=== PATIENT | female | born 1940 | race Caucasian/White ===

== ENCOUNTER 2018-10-29 09:07 | Outpatient (REF) | payer OTHER, SELFPAY ==
[2018-10-29 21:25] LABS: ALT 25 U/L (12-78); AST 19 U/L (15-37); Albumin 3.7 g/dL (3.4-5.0); Alkaline Phosphatase 91 U/L (46-116); Anion Gap 9.4 mmol/L (3-11); BUN 20 mg/dL (7-18); Bilirubin, Total 1.4 mg/dL (0.2-1.0); CO2 26.6 mmol/L (21.0-32.0); CREATININE 0.78 mg/dL (0.55-1.02); Calcium 9.4 mg/dL (8.5-10.1); Calculated LDL 207 mg/dL; Chloride 107 mmol/L (98-107); Cholesterol 287 mg/dL (50-200); Glucose 87 mg/dL (70-100); HDL Cholesterol 63 mg/dL (40-60); Potassium 4.5 mmol/L (3.5-5.1); Sodium 143 mmol/L (136-145); Total Protein 6.6 g/dL (6.4-8.2); Triglyceride 88 mg/dL (30-150)
== END 2018-10-29 09:27 ==
LOC: NCHCN 09:07
PROVIDERS: PCP Family Medicine; Visit Provider Family Medicine
DX: E78.5 Hyperlipidemia, unspecified (principal); R73.01 Impaired fasting glucose; I10 Essential (primary) hypertension
CPT/HCPCS: 80053; 80061; 83721

== ENCOUNTER 2019-11-02 11:51 | Outpatient (REF) | payer OTHER, SELFPAY ==
[2019-11-02 20:08] LABS: Anion Gap 10.4 mmol/L (3-11); BUN 26 mg/dL (7-18); CO2 26.6 mmol/L (21.0-32.0); CREATININE 1.02 mg/dL (0.55-1.02); Calcium 9.4 mg/dL (8.5-10.1); Chloride 106 mmol/L (98-107); Estimated GFR 52.14 (mL/min/1.73m2); Glucose 95 mg/dL (74-106); Potassium 4.7 mmol/L (3.5-5.1); Sodium 143 mmol/L (136-145); TSH (W/Ref FT4) 0.57 uIU/mL (0.36-3.74)
[2019-11-02 20:10] LABS: Hemoglobin A1C 5.6 % (3.8-5.6)
== END 2019-11-02 12:11 ==
LOC: NCHCN 11:51
PROVIDERS: PCP Family Medicine
DX: I10 Essential (primary) hypertension (principal); K59.00 Constipation, unspecified; R73.01 Impaired fasting glucose
CPT/HCPCS: 80048; 83036; 84443

== ENCOUNTER 2020-03-05 01:48 | Outpatient (CLI) | payer OTHER, SELFPAY ==
--- NOTE | 2020-03-05 | DI.US_ITS ---
EXAM: US PELVIS CLINICAL HISTORY: ABNL UTERINE BLEEDING,N93.9 TECHNIQUE: Transabdominal imaging was performed using standard protocol. Transvaginal portion of t he exam could not be performed due to patient discomfort. COMPARISON: No exams were available for comparison FINDINGS: KIDNEYS: Kidneys are symmetric in size. No evidence of renal calculi. No evidence of hydronephrosis. No renal mass or cyst identified. UTERUS: The exam is limited due to lack of urinary bladder distension and lack of transvaginal images . Anteverted. 6.2 x 2.6 x 4.3 cm. Endometrium: 15 millimeters in thickness. Not well visualized. Myometrium: Unremarkable. Cervix: Unremarkable. OVARIES: Not visualized, obscured by bowel gas. CUL-DE-SAC: Free fluid: None. IMPRESSION: 1. Limited exam. Abnormally thickened endometrium.. 2. Nonvisualization of the ovaries. DATA REPOSITORY:
== END 2020-03-05 02:08 ==
PROVIDERS: PCP Family Medicine; Visit Provider Family Medicine
DX: N93.9 Abnormal uterine and vaginal bleeding, unspecified (principal)
CPT/HCPCS: 76856

== ENCOUNTER 2020-03-05 17:51 | Outpatient (REF) | payer OTHER, SELFPAY ==
--- NOTE | 2020-03-05 16:00 | ENDOMET_PTH ---
PATIENT: Richa Bradford LOC: [facility] U#:[id number] AGE/SX: 79/F ROOM: RE03/05/[address]: Crystal Wilson DO : 1940 BED: DIS: 03/05/2020 SPEC #: [id number] RECD: 03/05/20 18:05 STATUS: BOBBI REQ #: [id number] JOSE: 03/05/20 16:[address]: Crystal Wilson DEPT: Surgical Specimen RECD BY: Kathleen Lopez ENTERED: 03/05/20 18:07 SP TYPE: Endomet OTHR DR: Mariya Dumont Tissues: 1 - ENDOMETRIUM BX/ONEAL Procedures: GROSS AND MICRO LEVEL 4 Comments: [id number]
== END 2020-03-05 18:11 ==
LOC: LBN 17:51
PROVIDERS: PCP Family Medicine; Visit Provider Obstetrics & Gynecology
DX: N85.02 Endometrial intraepithelial neoplasia [EIN]; N95.0 Postmenopausal bleeding
CPT/HCPCS: 88305

== ENCOUNTER 2020-04-30 18:14 | Outpatient (REF) | payer OTHER, SELFPAY ==
[2020-04-30 13:45] LABS: Abs Immature Grans 0.01 10^3/uL (0.0-0.06); Absolute Basophil Count 0.02 10^3/uL (0.0-0.2); Absolute Eosinophil Count 0.19 10^3/uL (0.0-0.7); Absolute Lymphocyte Count 1.13 10^3/uL (1.2-3.4); Absolute Monocyte Count 0.23 10^3/uL (0.1-0.8); Absolute Neutrophil Count 2.27 10^3/uL (1.2-6.7); Basophils % 0.5; Eosinophils % 4.9; HCT 38.2 % (36.0-46.0); HGB 12.1 g/dL (11.2-15.7); Immature Grans % 0.3; Lymphocytes % 29.4; MCH 30.2 pg (27.0-33.0); MCHC 31.7 % (32.0-36.0); MCV 95.3 fL (80-95); MPV 10.1 fL (8.0-11.0); Neutrophils % 58.9; Nucleated RBC 0 %; Platelet Count 322 10^3/uL (130-400); RBC 4.01 10^6/uL (3.93-5.22); RDW 12.7 % (11.7-14.6); RDW-SD 44.5 fL; WBC 3.85 10^3/uL (4.4-10.8)
[2020-04-30 13:58] LABS: ALT 26 U/L (14-59); AST 23 U/L (15-37); Alkaline Phosphatase 85 U/L (46-116); Anion Gap 8.9 mmol/L (3-11); BUN 24 mg/dL (7-18); Bilirubin, Total 1.2 mg/dL (0.2-1.0); CO2 27.1 mmol/L (21.0-32.0); CREATININE 1.11 mg/dL (0.55-1.02); Calcium 9.4 mg/dL (8.5-10.1); Chloride 104 mmol/L (98-107); Estimated GFR 47.29 (mL/min/1.73m2); Glucose 96 mg/dL (74-106); Potassium 4.4 mmol/L (3.5-5.1); Sodium 140 mmol/L (136-145)
[2020-05-01 10:10] LABS: CA 125 18 U/mL (<30)
== END 2020-04-30 18:34 ==
LOC: NCHCN 18:14
PROVIDERS: PCP Family Medicine; Visit Provider Family Medicine
DX: C54.1 Malignant neoplasm of endometrium (principal)
CPT/HCPCS: 80053; 86304; 85025

== ENCOUNTER 2021-08-15 21:18 | Outpatient (REF) | payer MEDICARE, SELFPAY ==
[2021-08-15 21:29] LABS: HCT 37.4 % (36.0-46.0); HGB 11.8 g/dL (11.2-15.7); MCH 29.5 pg (27.0-33.0); MCHC 31.6 % (32.0-36.0); MCV 94 fL (80-95); MPV 9.9 fL (8.0-11.0); Platelet Count 292 10^3/uL (130-400); RDW 13.4 % (11.7-14.6); RDW-SD 45.9 fL; WBC 5.14 10^3/uL (4.4-10.8)
[2021-08-15 21:47] LABS: ALT 30 U/L (14-59); AST 24 U/L (15-37); Albumin 3.7 g/dL (3.4-5.0); Alkaline Phosphatase 112 U/L (46-116); BUN 29 mg/dL (7-18); Bilirubin, Total 1.2 mg/dL (0.2-1.0); CREATININE 1.2 mg/dL (0.55-1.02); Calcium 9.2 mg/dL (8.5-10.1); Chloride 103 mmol/L (98-107); Estimated GFR 43.12 (mL/min/1.73m2); Glucose 92 mg/dL (74-106); Potassium 4.5 mmol/L (3.5-5.1); Sodium 138 mmol/L (136-145); TSH (W/Ref FT4) 0.92 uIU/mL (0.36-3.74); Total Protein 6.6 g/dL (6.4-8.2)
[2021-08-15 21:56] LABS: Iron 102 ug/dL (50-170); Total Iron Binding Capacity 435 ug/dL (250-450); Transferrin Sat 23 % (15-50)
== END 2021-08-15 21:19 | disposition home or self-care (01) ==
LOC: LBN 21:18
PROVIDERS: PCP Family Medicine; Visit Provider Nurse Practitioner Family
DX: R94.4 Abnormal results of kidney function studies; F03.90 Unspecified dementia, unspecified severity, without behavioral disturbance, psychotic disturbance, mood disturbance, and anxiety; C54.1 Malignant neoplasm of endometrium
CPT/HCPCS: 80053; 85027; 83540; 83550; 84443

== ENCOUNTER 2021-08-24 14:06 | Emergency (ER) | payer MEDICARE, SELFPAY ==
[2021-08-24] VITALS (36 sets, daily range): BP systolic 101–156; BP diastolic 47–117; PULSE 59–87; RESP 14–37; TEMP 36.7; O2SAT 98–100
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
--- NOTE | 2021-08-24 14:15 | RT.EKG_ITS ---
APPROVED REPORT Exam: Resting ECG Reason for Exam: trauma Patient Location: E HR:77 bpm ECG Measurements Heart Rate 77 AXIS IA 182 P 83 QRSd 79 QRS 83 QT 393 T 63 QTc 438 Conclusion Sinus rhythm...normal P axis, V-rate 60- 99 Atrial premature complex...SV complex w/ short R-R interval. Sinus. Normal axis. No STEMI. I have reviewed and interpreted ECG and agree with software generated interpretation.
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
[2021-08-24] MEDS: Ondansetron 4 MG/2 ML VIAL (14:45)
[2021-08-24 14:47] LABS: Abs Immature Grans 0.03 10^3/uL (0.0-0.06); Absolute Basophil Count 0.03 10^3/uL (0.0-0.2); Absolute Eosinophil Count 0.11 10^3/uL (0.0-0.7); Absolute Lymphocyte Count 1.05 10^3/uL (1.2-3.4); Absolute Monocyte Count 0.45 10^3/uL (0.1-0.8); Absolute Neutrophil Count 4.62 10^3/uL (1.2-6.7); Basophils % 0.5; Eosinophils % 1.7; HCT 33.5 % (36.0-46.0); HGB 10.8 g/dL (11.2-15.7); Immature Grans % 0.5; Lymphocytes % 16.7; MCHC 32.2 % (32.0-36.0); MCV 90 fL (80-95); MPV 9.4 fL (8.0-11.0); Monocytes % 7.2; Neutrophils % 73.4; Platelet Count 263 10^3/uL (130-400); RBC 3.73 10^6/uL (3.93-5.22); RDW 13.5 % (11.7-14.6); RDW-SD 44.5 fL; WBC 6.29 10^3/uL (4.4-10.8)
[2021-08-24 15:01] LABS: Bilirubin Negative (Negative); Blood Negative (Negative); Clarity Clear (Clear); Glucose Negative (Negative); Ketones Negative (Negative); Leukocyte Esterase Negative (Negative); Nitrite Negative (Negative); Urobilinogen 0.2 EU/dL (Up TO 0.2); pH 8.5 (5-8)
[2021-08-24 15:08] LABS: ALT 34 U/L (14-59); AST 47 U/L (15-37); Albumin 3.3 g/dL (3.4-5.0); Alkaline Phosphatase 103 U/L (46-116); Anion Gap 10.8 mmol/L (3-11); BUN 29 mg/dL (7-18); Bilirubin, Total 1.2 mg/dL (0.2-1.0); CO2 22.2 mmol/L (21.0-32.0); CREATININE 1.1 mg/dL (0.55-1.02); Calcium 8.8 mg/dL (8.5-10.1); Chloride 105 mmol/L (98-107); Estimated GFR 47.67 (mL/min/1.73m2); Glucose 117 mg/dL (74-106); Magnesium 2.7 mg/dL (1.8-2.4); Potassium 5.5 mmol/L (3.5-5.1); Sodium 138 mmol/L (136-145); Total Protein 6.7 g/dL (6.4-8.2); Troponin I < 50 ng/L (<or=60)
[2021-08-24 15:08] LABS: Bacteria Negative HPF (Negative); C & S Indicated? No; Casts Negative LPF (Negative); Crystals Negative HPF (Negative); Epithelial Cells Negative HPF (Negative); Mucus Trace (Negative); RBC 0-2 HPF (0-2); WBC 0-2 HPF (0-5)
[2021-08-24] MEDS: Normal Saline 500 ML IV (15:45)
[2021-08-24 16:41] LABS: Source Nasal/Nares
[2021-08-24 17:07] LABS: COVID-19 PCR Negative (Negative)
[2021-08-24] MEDS: Normal Saline Flush 10 ML SYR IVP (17:12)
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
== END 2021-08-24 19:16 | disposition home or self-care (01) ==
PROVIDERS: Emergency Provider Physician Assistant; PCP Family Medicine
DX: S01.01XA Laceration without foreign body of scalp, initial encounter (principal); S80.01XA Contusion of right knee, initial encounter; M54.9 Dorsalgia, unspecified; R11.0 Nausea; V49.9XXA Car occupant (driver) (passenger) injured in unspecified traffic accident, initial encounter
CPT/HCPCS: 73562; 74177; 80053; 87635; 90471; 93005; 96361; 96374; 99284; 99285; 70450; 71260; 72125; 81003; 81015; 83735; 84484; 85025; 93010; J2405

== ENCOUNTER 2021-09-11 04:49 | Inpatient (IN) | payer MEDICARE, MEDICAID, SELFPAY ==
[2021-09-11 04:50] VITALS: BP 158/84; PULSE 63; RESP 18; TEMP 36.3; O2SAT 100
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
--- NOTE | 2021-09-11 05:00 | DI.CT_ITS ---
Exam(s) CT HEAD CERVICAL SPINE WO EXAM: CT HEAD CERVICAL SPINE WO COMPARISON: CT CT HEAD CERVICAL SPINE WO from 08/24/2021 FINDINGS: CT examination of the cervical spine was performed without contrast administration. There are moderate to severe degenerative changes of the cervical spine. There is a chronic vertebra l body fusion of C6 and C7. There is a nondisplaced left C6 lamina fracture, this has the appearance of a stable fracture with in tact anterior and middle column. No narrowing of the spinal canal. Intervertebral disc spaces are markedly thinned throughout. Tracheolaryngeal structures appear intact. No cervical mass or adenopathy. Noncontrast cranial CT was performed. Ventricular system is normal in appearance. No evidence of acute intracranial hemorrhage, mass effect, or midline shift. No calvarial fracture. The orbital and temporal bone structures appear intact. Visualized mastoid air cells and paranasal sinuses appear clear. IMPRESSION: Nondisplaced left C6 lamina fracture, presumably stable. No evidence of acute intracranial injury. Results were reported to Dr. Garduno in the ER. RADIATION DOSE DELIVERED: 979.1mGy.cm Total DLP 979.1mGy.cm Total DLP !Error CTDIvol DATA REPOSITORY: All CT scans at this facility are submitted to the National Radiology Data Registry (NRDR) Dose Index Registry (DIR) with the [employer] (ACR). RADIATION OPTIMIZATION: All CT scans at this facility use at least one of these dose optimization te chniques: automated exposure control; mA and/or kV adjustment per patient size (includes targeted exa ms where dose is matched to clinical indication); or iterative reconstruction.
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
[2021-09-11 05:14] LABS: Source Nasal/Nares
[2021-09-11 05:19] LABS: Abs Immature Grans 0.01 10^3/uL (0.0-0.06); Absolute Basophil Count 0.06 10^3/uL (0.0-0.2); Absolute Eosinophil Count 0.02 10^3/uL (0.0-0.7); Absolute Lymphocyte Count 0.56 10^3/uL (1.2-3.4); Absolute Monocyte Count 0.39 10^3/uL (0.1-0.8); Absolute Neutrophil Count 6.75 10^3/uL (1.2-6.7); Basophils % 0.8; Eosinophils % 0.3; HCT 34.7 % (36.0-46.0); HGB 11.1 g/dL (11.2-15.7); Immature Grans % 0.1; Lymphocytes % 7.2; MCH 29.1 pg (27.0-33.0); MCV 91 fL (80-95); MPV 8.9 fL (8.0-11.0); Neutrophils % 86.6; Platelet Count 341 10^3/uL (130-400); RBC 3.82 10^6/uL (3.93-5.22); RDW 13.2 % (11.7-14.6); RDW-SD 43.8 fL; WBC 7.79 10^3/uL (4.4-10.8)
[2021-09-11 05:31] LABS: ALT 20 U/L (14-59); AST 19 U/L (15-37); Albumin 3.4 g/dL (3.4-5.0); Alkaline Phosphatase 128 U/L (46-116); Anion Gap 7.4 mmol/L (3-11); BUN 30 mg/dL (7-18); CO2 27.6 mmol/L (21.0-32.0); CREATININE 1.2 mg/dL (0.55-1.02); Calcium 9.2 mg/dL (8.5-10.1); Chloride 105 mmol/L (98-107); Estimated GFR 43.12 (mL/min/1.73m2); Glucose 109 mg/dL (74-106); Magnesium 2.1 mg/dL (1.8-2.4); Potassium 3.7 mmol/L (3.5-5.1); Sodium 140 mmol/L (136-145); Total Protein 6.8 g/dL (6.4-8.2); Troponin I < 50 ng/L (<or=60)
[2021-09-11] MEDS: Normal Saline 500 ML IV (06:00)
[2021-09-11 06:01] LABS: Bilirubin Negative (Negative); Blood Negative (Negative); Clarity Clear (Clear); Glucose Negative (Negative); Ketones Negative (Negative); Leukocyte Esterase Negative (Negative); Nitrite Negative (Negative); Urobilinogen 0.2 EU/dL (Up TO 0.2)
[2021-09-11 06:08] LABS: COVID-19 PCR Negative (Negative)
--- NOTE | 2021-09-11 06:33 | DI.VRAD_ITS ---
PROCEDURE INFORMATION: Exam: CT Head Without Contrast Exam date and time: 09/11/2021 6:03 AM Age: 80 years old Clinical indication: Altered mental status/memory loss; Weakness; Patient HX: Altered, R/O acute disease TECHNIQUE: Imaging protocol: Computed tomography of the head without contrast. Radiation optimization: All CT scans at this facility use at least one of these dose optimization techniques: automated exposure control; mA and/or kV adjustment per patient size (includes targeted exams where dose is matched to clinical indication); or iterative reconstruction. COMPARISON: CT HEAD CERVICAL SPINE WO 08/24/2021 4:39 PM FINDINGS: Brain:Moderate volume loss No hemorrhage.Mild white matter disease. No mass effect. Cerebral ventricles: No ventriculomegaly. Paranasal sinuses: Visualized sinuses are unremarkable. No fluid levels. Mastoid air cells: Visualized mastoid air cells are well aerated. Bones/joints: Unremarkable. No acute fracture. Soft tissues: Unremarkable. IMPRESSION: No acute intracranial abnormality. PROCEDURE INFORMATION: Exam: CT Cervical Spine Without Contrast Exam date and time: 09/11/2021 6:03 AM Age: 80 years old Clinical indication: Altered mental status/memory loss; Weakness; Patient HX: Altered, R/O acute disease TECHNIQUE: Imaging protocol: Computed tomography images of the cervical spine without contrast. Radiation optimization: All CT scans at this facility use at least one of these dose optimization techniques: automated exposure control; mA and/or kV adjustment per patient size (includes targeted exams where dose is matched to clinical indication); or iterative reconstruction. COMPARISON: CT HEAD CERVICAL SPINE WO 08/24/2021 4:39 PM FINDINGS: Bones/joints: No acute fracture. Loss of cervical lordosis is presumably on a degenerative basis. Discs/Spinal canal/Neural foramina: No significant spinal canal stenosis. Multilevel neural foraminal narrowing. Lungs: Lung apices are grossly clear Soft tissues: Unremarkable. IMPRESSION: No acute findings. Dictated and Authenticated by: Arvind Loya MD. Ordering:LEVI Marsh MD
--- NOTE | 2021-09-11 07:38 | DI.VRAD_ITS ---
PROCEDURE INFORMATION: Exam: XR Chest Exam date and time: 09/11/2021 6:18 AM Age: 80 years old Clinical indication: Other: AMS; Patient HX: Altered, R/O acute disease TECHNIQUE: Imaging protocol: XR of the chest. Views: 2 views. COMPARISON: CT CHEST/ABD/PEL W 08/24/2021 4:44 PM FINDINGS: Lungs: Unremarkable. No consolidation. Pleural spaces: Unremarkable. No pleural effusion. No pneumothorax. Heart/Mediastinum: Unremarkable. No cardiomegaly. Bones/joints: Unremarkable. IMPRESSION: No acute findings. Dictated and Authenticated by: Godfrey Dahl MD. Ordering:LEVI Marsh MD
[2021-09-11] MEDS: LORazepam 2 MG/ML VIAL 0.5 MG IVP (08:41)
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
[2021-09-11 09:46] VITALS: BP 110/40; PULSE 54; TEMP 36.5; O2SAT 97
--- NOTE | 2021-09-11 10:15 | DI.RAD_ITS ---
Exam(s) XR CERVICAL SP [place] TRAUMA 2-3V EXAM: XR CERVICAL SP [place] TRAUMA 2-3V CLINICAL HISTORY: Upright PA LAT for C6 fracture TECHNIQUE: COMPARISON: No exams were available for comparison FINDINGS: Four views were obtained including flexion and extension lateral views. Today's CT showed a nondispl aced left C6 vertebral lamina fracture. This is not identified on the plain radiographs. Flexion ex tension views are unremarkable. IMPRESSION: RADIATION DOSE DELIVERED: Total DLP
--- NOTE | 2021-09-11 10:38 | W.EDPROG ---
Date of service: 09/11/21 Time of Service: 09:38 Medical Decision Making 80-year-old female who had been admitted to the hospital service by Dr. Hsu. Please see her note regarding details of the initial presentation. Patient had had cervical spine imaging that was read as unremarkable by Enzo devries. Dr. Pantoja reread the x-ray and contacted me approximately 9 AM noting a left C6 lamina fracture. I reviewed the images as well as those from the patient's presentation on August 24. I asked Dr. Pantoja to also review these and they revealed the fracture present at that time and unchanged. Patient is nontender, she demonstrates a normal motor and sensory exam of the upper extremity. She does not complain of pain. She was placed in an [place] collar, [place] [facility] [place] and the case discussed with on-call neurosurgery/spine. They request that upright PA and lateral cervical spine x-ray in cervical collar for alignment. Which was unremarkable. Subsequently, we performed flexion and extension x-ray with maintenance of alignment. Per neurosurgery the patient may heal without a collar and only needs to see them in clinic if needed. Discharge Plan Disposition Patient Disposition: [facility] INPATIENT Condition: Stable Discharge Details Clinical Impression: Dementia, Unable to care for self Primary Care Provider: Mariya Dumont ED Provider: Salma Hsu Home Meds and New Rx's Prescriptions: No Action multivitamin [Daily Vitamin] Tablet 1 tab PO DAILY latanoprost 0.005 % Drops 1 drp ophthalmic (eye) DAILY timolol maleate [Timoptic] 0.5 % Drops 1 drp ophthalmic (eye) DAILY
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
[2021-09-11] MEDS: LORazepam 2 MG/ML VIAL (13:12)
[2021-09-11 13:30] VITALS: BP 117/63; PULSE 72; RESP 19; TEMP 37.2; O2SAT 99
--- NOTE | 2021-09-11 15:07 | NUR.NOTE ---
Admitted from the ER via stretcher to room 210 see admission page II for details of arrival assesment.
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
[2021-09-12] MEDS: QUEtiapine 25 MG TAB 12.5 MG PO ×2 (03:19→20:14)
[2021-09-12 05:24] VITALS: BP 143/67; PULSE 68; RESP 18; TEMP 36.9; O2SAT 100
[2021-09-12 07:47] VITALS: BP 117/60; PULSE 81; RESP 18; TEMP 36.6; O2SAT 98
[2021-09-12] MEDS: Multivitamin TAB 1 TAB PO (07:47)
[2021-09-12] MEDS: Acetaminophen 325 MG TAB 650 MG PO (07:47)
[2021-09-12 10:57] VITALS: BP 109/53; PULSE 66; RESP 16; TEMP 36.8; O2SAT 98
--- NOTE | 2021-09-12 11:37 | W.PM.PROGNOT ---
Date of Service Date of service: 09/30/21 Time of Service: 16:00 Assessment and Plan Assessment and plan (1) Abdominal pain: Status: Acute Assessment and plan: routine labs, cmp, lipase cbc and monitor abdominal exam is benign (2) COVID-19: Status: Acute Assessment and plan: Discussed with Dr Rivero - cycling time for covid pcr 33 - Dr Rivero said we could discontinue covid precautions. Dxd after developing a fever the evening of 09/22. No hyoxia. CXR negative for acute findings. Acetaminophen prn for fever. UA negative as well. (3) Dementia: Status: Chronic Assessment and plan: Chronic and progressive. On Quetiapine. (4) Closed C6 fracture: Status: Acute Assessment and plan: No pain complaints currently. (5) Discharge planning issues: Status: Acute Assessment and plan: [place] to interview this week. discussed with Dr Schneider Subjective Subjective Patient reports: no new complaints, feels better, tolerating liquids well, voiding w/o difficulty and bowel movement; denies diarrhea, nausea, vomiting, shortness of breath or fever Exam Narrative Exam Narrative: Pt sitting up in bed. Confused, but eager to chat. Const General: cooperative and no acute distress Nutritional Appearance: average body habitus Orientation: alert and confused Eyes General: appearance normal, both eyes and all related structures Cornea: corneas normal Resp Effort & Inspection: normal respiratory effort Auscultation: clear to auscultation bilaterally Cardio Rate: regular rate Rhythm: regular rhythm Heart Sounds: S1 normal and S2 normal GI Inspection: normal to inspection and obesity Palpation: soft, not firm, no guarding, no hernias and no masses Extrem General: no pedal edema and no calf tenderness Objective Last Vital Signs Temp 36.8 C 09/12/21 10:57 Pulse 66 09/12/21 10:57 Resp 16 09/12/21 10:57 BP 109/53 L 09/12/21 10:57 Pulse Ox 98 09/12/21 10:57 Reviewed Pertinent PMH: Yes
--- NOTE | 2021-09-12 13:38 | PT.INTREAT ---
Date of service: 09/12/21 Time of Service: 13:38 PT Notes Visit Reasons: Fall,Ambulatory Dysfunction Physical Therapy Inpatient Treatment Note Date: 09/12/2021 Precautions: Fall. Standard. Activity as tolerated. Subjective: Reports mild pain in her upper back earlier today per ROSA Hearn. Perkier today. More responsive. Compliant with PT sessions. Wanted to wear her shoes for the walk. Agreeable to doing the NuStep bike for the afternoon session along with the doing the hallway walk. Objective: General Observation: Seated on chair. CHILD CARE SPECIALIST Nadiya is this morning's sitter. Mental Status: Oriented only to self. Pain: None expressed verbally and non-verbally Vital Signs: Closely monitored by nursing Bed Mobility/Transfers: Sit to stand contact guard assist Stand to sit contact guard assist Bed to reclining chair contact guard assist Reclining chair to bed contact guard assist Gait: Instructed patient with level surface ambulation of up to 300 feet requiring hand hels assist of 2.? Posture much more upright. Stance more stable. Limb advancement much improved. Verbal cues given only for directional changes. Denies headache, dizziness, and lightheadedness throughout. THERA EX: Tolerated 8:27 minutes of NuStep at resistance of 9 with no undue difficulty nor shortness of breath. Balance: Static Sitting: Normal Dynamic Sitting: Normal Static Standing: Fair Dynamic Standing: Fair ASSESSMENT: 1. Closed non-displaced C6 lamina fracture Participation level improving. Ability to follow instructions improving. No report of pain in neck but in upper back today. No report of dizziness nor headache. Contiuing to improve with PT. Plan of Care/Treatment Plan: 1-2x/day, 7 days/week x 1 week. Plan of care has been reviewed with the PLATE GRAINER APPRENTICE providing the service under Physical Therapy direction. Cotninue with Physical Therapy intervention for pain management as needed, strengthening, bed mobility, transfers, gait, stairs, balance training, and use of assistive device. DISCHARGE RECOMMENDATIONS: Patient will benefit from longterm facility placement for continued skilled physical therapy services in order to progress mobility level, strength, and balance in preparation for a safe discharge to home.? Consider LTC placement. TREATMENT CODE/TIME: Session 1-- 34512 x 17 minutes beginning at 11:55 AM. Session 2--44155 x 20 minutes, 43175 x 12 minutes beginning at 13:38 PM. Thank you for the opportunity to participate in the care of this patient. Liliane Gomez PT, DPT, CLT [facility] [place], [place]
[2021-09-12 15:33] VITALS: BP 111/61; PULSE 70; RESP 17; TEMP 36.9; O2SAT 98
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
--- NOTE | 2021-09-12 16:39 | CM.SWINGPC ---
- If Service Date Differs Date of service: 09/12/21 Time of Service: 16:39 Swingbed Plan of Care Plan of care: SWING BED PROGRAM ACTIVITIES/DISCHARGE PLAN OF CARE ACTIVITIES PLAN Date:09/12/21 Identified Need: Individualized Activity Plan Intervention/Plan:Renita enjoys ambulating in the halls with staff and looking out of various windows with views of the [place]. In the community she takes several walks a day outdoors to her neighbor's store. She has had a sitter with her that keeps her company and enjoys watching television. If pet therapy or rekii or music therapy become available, she would enjoy all of those. Initials:[facility] [place] Date:09/12/21 Identified Need:Safe Discharge Plan Intervention/Plan:Renita's DPOA is seeking ad terminal makeup operator placement for her in an area nursing facility. At this time she does not have a payer source as she has not had a 3 night qualifying stay. Per Suzanna Lopes, who has applied for emergency guardianship, a ad terminal makeup operator Medicaid application was mailed a week ago. Followup with Medicaid indicated that they have not received the application as yet. Initials:[facility]
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
[2021-09-12] MEDS: Melatonin 3 MG TAB PO (20:14)
[2021-09-12 22:11] VITALS: BP 105/58; PULSE 78; RESP 14; TEMP 37; O2SAT 97
[2021-09-13 07:24] VITALS: BP 144/76; PULSE 67; RESP 16; TEMP 36.7; O2SAT 97
[2021-09-13] MEDS: Acetaminophen 325 MG TAB 650 MG PO (08:46)
[2021-09-13] MEDS: Multivitamin TAB 1 TAB PO (08:46)
[2021-09-13] MEDS: Docusate Sodium 100 MG CAP PO (10:14)
[2021-09-13] MEDS: Polyethylene Glycol 3350 17 GM PACKET PO (10:14)
--- NOTE | 2021-09-13 11:21 | PTTR_ITS ---
Date of service: 09/13/21 Time of Service: 11:21 PT Notes Visit Reasons: Fall,Ambulatory Dysfunction Physical Therapy Inpatient Treatment Note Date: 09/13/2021 Precautions: Fall. Standard. Activity as tolerated. Subjective: No report of neck pain, headache, dizziness, and chest pain throughout session. Objective: General Observation: Seated on chair.? ROSA Benitez is this morning's sitter. Mental Status: Oriented only to self. Pain: None expressed verbally and non-verbally Vital Signs: Closely monitored by nursing Bed Mobility/Transfers: Sit to stand stand by assist Stand to sit stand by assist Bed to reclining chair stand by assist Reclining chair to bed stand by assist Gait: Instructed patient with level surface ambulation of up to 300 feet + 300 feet requiring hand held assist.? Posture much more upright.? Stance more stable.? Limb advancement much improved.? Verbal cues given only for directional changes.? Did not report neck pain, headache, dizziness, and lightheadedness throughout. THERA EX:? Standing level strengthening exercises including bilateral heel raises x 10, stepping ex using 12-inch height, bilateral knee bends x 10 using 3 lb ankle weights. Balance: Static Sitting: Normal Dynamic Sitting: Normal Static Standing: Good Dynamic Standing: Fair ASSESSMENT: 1. Closed non-displaced C6 lamina fracture Participation level continuing to improve.? Ability to follow instructions increasing.? Continuing to improve with PT. Severe impairment in decision making and safety awareness makes patient unable to thrive at home at this time. DISCHARGE RECOMMENDATIONS: Patient will benefit from [facility] facility placement for continued skilled physical therapy services in order to progress mobility level, strength, and balance in preparation for a safe discharge to home.? Consider LTC placement. TREATMENT CODE/TIME: 56880 x 20 minutes, 14630 x 15 minutes beginning at 11:21 AM.
--- NOTE | 2021-09-13 13:34 | PTTR_ITS ---
Date of service: 09/13/21 Time of Service: 13:07 PT Notes Visit Reasons: Fall,Ambulatory Dysfunction Inpatient Physical Therapy Treatment Note [facility] Date: 09/13/2021 PRECAUTIONS: Activity as tolerated, confusion SUBJECTIVE: Dot is pleasant and agreeable to participating in PT. She reports that she is bored and states that an old man was supposed to come back for her, but she doesnt know when. OBJECTIVE: PAIN: No complaints of pain BED MOBILITY/TRANSFERS Sit-stand: CGA Stand-sit: CGA GAIT Assistive Device: ADJUNCT SOCIOLOGY PROFESSOR Weight bearing: Full Assist: CGA (due to unreliability) Distance: 600' + 300' Deviation: None THEREX: Patient was instructed in several lower extremity strengthening exercises, completed in a standing position, to include hip flexion, hip abduction, mini squats and heel raises, as well as HS stretching and hip abductor stretching. STAIRS: Up 6x6 and down 9x4 using B rails and a step-over pattern with SBA ASSESSMENT: Patient tolerated session well, without complaint. She was able to tolerate a progression in gait distance, with ADJUNCT SOCIOLOGY PROFESSOR and CGA. Patient only requires ADJUNCT SOCIOLOGY PROFESSOR/CGA due to unreliability and confusion for safety, otherwise demonstrates steady gait and pacing. PLAN: Continue with general functional mobility training and global strengthening, as indicated by POC. TREATMENT CODE/TIME: 19 minutes; 06359 (13:07)
--- NOTE | 2021-09-13 15:17 | NUR.NOTE ---
Patient taken for walk. We did multiple loops on med surg floor. Patient started getting agitated and very upset wondering when that old man will be here to get me. and was worried because she couldn't find her dog. This clinical writer re-directed the patient to sit back and relax by window and eat a snack while we waited for Sincere to here from taking care of his store. Patient still concerned recurrently about Sincere coming to pick her up. This clinical writer continues to reassure patient that everything is okay and that we want to make sure she can be safe and healthy before she is able to go anywhere. Patient is agreeable and is currently looking out of the window asking when the old man will be here. Seems upset. Nursing Note:
[2021-09-13] MEDS: QUEtiapine 25 MG TAB 12.5 MG PO ×2 (15:21→21:32)
[2021-09-13] MEDS: Melatonin 3 MG TAB PO (21:32)
[2021-09-14 08:30] VITALS: BP 146/83; PULSE 72; RESP 16; TEMP 36.7; O2SAT 98
[2021-09-14] MEDS: Multivitamin TAB 1 TAB PO (08:38)
--- NOTE | 2021-09-14 12:40 | PT.INTREAT ---
PT Notes Visit Reasons: Fall,Ambulatory Dysfunction SUBJECTIVE: Pt is pleasantly confused but was redirectable and agreed to participating with therapy.? 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 OBJECTIVE:? PAIN: No complaints of pain ? BED MOBILITY/TRANSFERS? Sit-stand: SBA Stand-sit: SBA ? GAIT? Assistive Device: FWW Weight bearing: Full Assist: CGA (due to unreliability) Distance: 600' ? Deviation: will sometimes leave AD behind. STAIRS: Up 6x6 and down 9x4 using B rails and a step-over pattern with SBA? ASSESSMENT: Patient able to complete gait training and stairs activity by providing redirection to improve pt focus with task. Pt will leave AD behind if not monitored but is able to appreciate importance of using AD for safety with activity. PLAN: Continue with general functional mobility training and global strengthening, as indicated by POC. TREATMENT CODE/TIME: 25 minutes; 56561 (8:55 to 9:20)
[2021-09-14 15:50] VITALS: BP 132/70; PULSE 80; RESP 16; TEMP 36.9; O2SAT 97
[2021-09-14] MEDS: QUEtiapine 25 MG TAB 12.5 MG PO (17:57)
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
[2021-09-15 07:30] VITALS: BP 135/80; PULSE 69; RESP 16; TEMP 36.3; O2SAT 100
[2021-09-15] MEDS: Multivitamin TAB 1 TAB PO (08:43)
--- NOTE | 2021-09-15 11:23 | PT.INTREAT ---
PT Notes Visit Reasons: Fall,Ambulatory Dysfunction SUBJECTIVE: Pt in bed sleeping when approached for therapy this morning, Pt still pleasantly confused and required verbal cue for redirection to get Pt to agree with gait training. OBJECTIVE:? PAIN: No complaints of pain ? BED MOBILITY/TRANSFERS? Sit-stand: SBA Stand-sit: SBA ? GAIT? Assistive Device: FWW Weight bearing: Full Assist: CGA (due to unreliability) Distance: 600' ? Deviation: will sometimes leave AD behind (same as previous session) STAIRS: Up 6x6 and down 9x4 using B rails and a step-over pattern with SBA? ASSESSMENT: Patient able to complete gait training and stairs activity by providing redirection to improve pt focus with task. Pt will leave AD behind if not monitored but is able to appreciate importance of using AD for safety with activity. PLAN: Continue with general functional mobility training and global strengthening, as indicated by POC. TREATMENT CODE/TIME: 25 minutes; 59376 (9:35 to 10:00)
[2021-09-15 15:44] VITALS: BP 146/84; PULSE 81; RESP 16; TEMP 37.2; O2SAT 99
[2021-09-15] MEDS: QUEtiapine 25 MG TAB 12.5 MG PO ×2 (19:43→23:25)
[2021-09-15] MEDS: Polyethylene Glycol 3350 17 GM PACKET PO (19:45)
[2021-09-15] MEDS: Melatonin 3 MG TAB PO (21:20)
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
[2021-09-16] MEDS: Multivitamin TAB 1 TAB PO (08:24)
[2021-09-16 08:42] VITALS: BP 121/71; PULSE 80; RESP 20; TEMP 36.2; O2SAT 100
[2021-09-16] MEDS: Docusate Sodium 100 MG CAP PO (11:07)
[2021-09-16] MEDS: Polyethylene Glycol 3350 17 GM PACKET PO (11:07)
--- NOTE | 2021-09-16 11:08 | NUR.NOTE ---
Nursing Note: ROSA/alex notified this BILINGUAL TEACHER that patient was seen digging into her rectum and talking about having to poop. patient was not successful at having a BM on the toliet, BILINGUAL TEACHER administered PRN Colace and Miralax.
--- NOTE | 2021-09-16 12:24 | PT.INTREAT ---
Date of service: 09/16/21 Time of Service: 11:48 PT Notes Visit Reasons: Fall,Ambulatory Dysfunction Inpatient Physical Therapy Treatment Note [facility] Date: 09/16/2021 PRECAUTIONS: Activity as tolerated, confusion SUBJECTIVE: Renita is very pleasant and agreeable to participating in PT. She reports that she had a good weekend. She continues to discuss the old man that has my dog. She states that she would like to go outside. OBJECTIVE: PAIN: No complaints of pain BED MOBILITY/TRANSFERS Sit-stand: SBA Stand-sit: SBA GAIT Assistive Device: None Weight bearing: Full Assist: SBA Distance: 600' + 300' Deviation: None THEREX: Patient was instructed in functional [id number] exercise x10 with UE support. several lower extremity strengthening exercises, completed in a standing position, to include hip flexion, hip abduction, mini squats and heel raises, as well as HS stretching and hip abductor stretching. ASSESSMENT: Patient tolerated session well, without complaint. She was able to tolerate a progression in gait distance, with SBA and without assistive device support demonstrating steady gait and pacing. PLAN: Continue with general functional mobility training and global strengthening, as indicated by POC. TREATMENT CODE/TIME: Session 1: 25 minutes; 51509 x2 (11:48) Session 2: Patient was observed walking with nursing staff taking several loops around the hallway several times throughout the afternoon.
--- NOTE | 2021-09-16 14:52 | NUR.NOTE ---
Patient still attempting to have a bowel movement. Patient states when it comes out its going to hurt Patient unsuccessful at having bowel movement. RN notified. Nursing Note:
[2021-09-16] MEDS: Melatonin 3 MG TAB PO (20:20)
[2021-09-16] MEDS: QUEtiapine 25 MG TAB 12.5 MG PO (20:20)
[2021-09-17 07:35] VITALS: BP 130/54; PULSE 67; RESP 22; TEMP 36.3; O2SAT 100
[2021-09-17] MEDS: Multivitamin TAB 1 TAB PO (09:30)
--- NOTE | 2021-09-17 12:39 | PTTR_ITS ---
Date of service: 09/17/21 Time of Service: 08:45 PT Notes Visit Reasons: Fall,Ambulatory Dysfunction Inpatient Physical Therapy Treatment Note [facility] Date: 09/17/2021 PRECAUTIONS: Activity as tolerated, confusion SUBJECTIVE: Dot is very pleasant and agreeable to participating in PT. She speaks in nonsensical sentences, but is conversational and pleasant throughout. OBJECTIVE: PAIN: No complaints of pain BED MOBILITY/TRANSFERS Sit-stand: SBA Stand-sit: SBA GAIT Assistive Device: None Weight bearing: Full Assist: SBA Distance: ~x15 minutes Deviation: Gait training over varying surfaces including linoleum, carpet, cement, grass (uneven) STAIRS: Up 13x6 and down 36x6 using U rails and occasional ENERGY OPERATIONS VICE PRESIDENT with SBA ASSESSMENT: Patient tolerated session well, without complaint. She was able to tolerate a progression in gait distance, with SBA and without assistive device support demonstrating steady gait and pacing over even and uneven surfaces. She demonstrates appropriate safety awareness with gait training. PLAN: Continue with general functional mobility training and global strengthening, as indicated by POC. TREATMENT CODE/TIME: 30 minutes; 43558 x2 (08:45)
[2021-09-17 14:52] VITALS: BP 143/77; PULSE 86; RESP 18; TEMP 37.2; O2SAT 100
--- NOTE | 2021-09-17 17:33 | PDOC.CMPRO ---
- If Service Date Differs Date of service: 09/17/21 Time of Service: 17:33 Care Management Progress Note CM met with MELISSA Post, at his request while he was visiting Richa. CM met with Sincere in the family meeting room to discuss his questions/concerns outside of the patient's room. Sincere asked where Richa was being placed, and CM discussed the barriers to her placement. CM explained that Richa did not have an acute inpatient stay at [facility] (or any other hospital in the last 30 days), therefore she does not currently have a payer source for placement- short term or buttermaker helper. CM notified Sincere (although he was notified on admission) that Richa is in self pay status currently. CM did request an authorization for SWB from her MCR replacement policy, [facility], which is pending. Sincere signed the NEMB, notifying him (MELISSA) in writing that Richa has not had a 3 night qualifying stay, therefore she is in self pay status. CM asked about the status of a retirement KIRBY application, which he stated has been submitted. CM expressed the importance of having all documents submitted to KIRBY as soon as they are requested, as the process to obtain buttermaker helper KIRBY is often held up by missing financial documentation. He agreed to work on this diligently. He stated that he and Richa own a home together, and asked about the implications of this property ownership and retirement KIRBY, and he stated that he would discuss this with his academic support specialist. CM asked about alternative placement for Richa, as she does not have an acute illness being treated at [facility] currently, and she does not have a payer source for placement. CM asked if he or his daughter would be willing to have her live with them, or if someone could stay at her house with her. He stated that this is not possible. CM asked if he could inquire about private caregivers, and he stated that he had not considered that as an option, as she doesn't have money to pay for caregivers. CM asked that he continue to work collaboratively with the care team in order to find an appropriate setting for Richa in the short term while waiting for the retirement KIRBY application to process. Sincere did not have any further questions at this time.
[2021-09-17 19:40] VITALS: BP 124/70; PULSE 71; RESP 18; TEMP 36.7; O2SAT 98
[2021-09-17] MEDS: QUEtiapine 25 MG TAB 12.5 MG PO (19:45)
[2021-09-17] MEDS: Melatonin 3 MG TAB PO (21:28)
[2021-09-18 03:20] VITALS: BP 145/76; PULSE 67; RESP 18; TEMP 36.6; O2SAT 98
[2021-09-18] MEDS: Multivitamin TAB 1 TAB PO (07:39)
[2021-09-18] MEDS: QUEtiapine 25 MG TAB 12.5 MG PO ×2 (10:37→19:14)
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
--- NOTE | 2021-09-18 14:40 | PT.INPN ---
Date of service: 09/18/21 Time of Service: 16:40 PT Notes Visit Reasons: Fall,Ambulatory Dysfunction Physical Therapy Inpatient Progress Note Date: 09/18/2021 Dates of Service: 09/11/2021 through 09/18/2021 Precautions: Fall. Standard. Activity as tolerated. Subjective: Pleasant and cooperative. Agreeable to PT session. Am I sleeping here tonight?' Objective: General Observation: Seated on chair. ROSA Dupont sitting with patient. Mental Status: Alert. Focus impaired but is redirectable to task. Responses non-sensical/unrelated to conversation topic but is able to follow single step commands.. Pain: None expressed verbally and non-verbally Vital Signs: Closely monitored by nursing ROM: Right Upper Extremity: ? Grossly WFL Left Upper Extremity:? Grossly WFL Right Lower Extremity: Grossly WFL Left Lower Extremity: Grossly WFL Strength: Right Upper Extremity: Grossly 5/5 Left Upper Extremity: Grossly 5/5 Right Lower Extremity: Grossly 4/5 Left Lower Extremity: Grossly 4/5 Bed Mobility/Transfers: Rolling independent Supine to sit independent Sit to stand supervision Stand to sit supervision Bed to reclining chair supervision Reclining chair to bed supervision Gait: Able to complete up to 900 feet of level surface ambulation with stand by assist (hand held assist when terrain/route is unfamiliar to her). No path deviation. No LOB. Able to negotiate obstacles. HAs been able to navigate over variable outdoor surfaces with SILVERWARE WASHER without any issues. Balance: Static Sitting: Normal Dynamic Sitting: Normal Static Standing: Good Dynamic Standing: Good Special Tests: Mobility Limitations Standardized Measure [facility] 6 clicks Basic Mobility Inpatient Short Form: Raw Score: 23? CMS Score: 11% deficit? ? ? ASSESSMENT: 1. Closed non-displaced C6 lamina fracture No report of pain in neck nor upper back since the day after start of care. Patient now at stand by assist level which has been a significant improvement from requiring assist of 2 for ambulation at start of care. Due to cognitive level, patient may not be able to thrive at home alone at this time and may require placement.. Patient presents with clinical signs and symptoms consistent with current/admitting diagnoses that have resulted to mobility limitations, gait instability, generalized weakness, and overall ADL decline as demonstrated by the following impairment level findings: 1.? Impaired sitting/standing balance 2.? Dementia Impairments are contributing to the following functional limitations: 1.? Inability to thrive alone at home Patient is assessed as a 61857 low complexity based on the following: History: 80-year-old female with past medical history as indicated above Examination: Demonstrable impairment in strength, balance, and mobility level with underlying impairments and functional limitations as exhibited above as well as deficit score of 23% utilizing the [facility] Mobility Inpatient Short Form Presentation: Stable Decision Makin low complexity Goals: Goals X 3 days 1. Supine-Sit supervision MET 2. Sit-Supine? supervision MET 3. Sit-Stand? supervision MET 4. Stand-Sit CGA of 1 MET 5. Bed-Chair CGA of 1 MET 6. Chair-Bed CGA of 1 MET 7. CGA of 1 with gait on level surface with use of AD for at least 300 feet without report of pain nor dyspnea MET, UPGRADE TO SUPERVISION 8. Fair static and dynamic standing balance/tolerance MET. UPGRADE TO NORMAL Plan of Care/Treatment Plan: Decrease frequecncy to 1x/day for 5x/week with plan for continued ambulation with nursing staff. PT focus of treatment will be progressing dynamic standing balance as well as progressing B UE/LE strenggh to reduce fall risk. TODAY'S ACTIVITY INCLUDED: (ROSA Dupont assisting ) 1. Side stepping with hand-held assist and no hand held assist x 10 to R and x 10 to L for 5 sets with bilateral 3 lb AW 2. Ball catching/ball tossing (while standing in front of treatment plinth) for 3 minutes 3. Ball kicking while seated at edge of treatment plinth x 3 minutes with bilateral 3 lb AW 4. Backing up with bilateral hand-held assist DISCHARGE RECOMMENDATIONS: BARBARA vs supervised home vs. SNF LTC TREATMENT CODE/TIME: 68690 x 28 minutes beginning at 14:40 PM. Thank you for the opportunity to participate in the care of this patient. Liliane Gomez PT, DPT, CLT [facility] [place], [place]
[2021-09-18 15:53] VITALS: BP 122/56; PULSE 87; RESP 18; TEMP 36.4; O2SAT 99
[2021-09-18] MEDS: Melatonin 3 MG TAB PO (21:12)
[2021-09-19 00:21] VITALS: BP 116/81; PULSE 73; RESP 16; TEMP 35.8; O2SAT 97
[2021-09-19 07:59] VITALS: BP 109/65; PULSE 66; RESP 15; TEMP 36.5; O2SAT 97
[2021-09-19] MEDS: Multivitamin TAB 1 TAB PO (08:08)
--- NOTE | 2021-09-19 09:30 | CMACTNOTE_ITS ---
- If Service Date Differs Date of service: 09/19/21 Time of Service: 09:30 Care Management Activity Note S/O: Renita remains at [facility] awaiting intermediate school teacher Medicaid and placement in a detention care facility. She is pleasant much of the time and interacts well with staff. Renita is active when in the community and walks outside frequently. The staff on Med-Surg has been taking her for frequent long walks on the unit, which she seems to enjoy. Renita spends much of her day watching tv. Her DPOA has shared that she needs to have sound in her environment, such as a radoio or TV on all the time. She does not like silence and can become more agitated in that setting. P: Richa will likely be transferred to a senior care facility for detention care when a payer source is available. A detention Medicaid application has been submitted by Juliette Lopes who has been granted emergency guardianship.
[2021-09-19] MEDS: Melatonin 3 MG TAB PO (21:04)
[2021-09-19] MEDS: QUEtiapine 25 MG TAB 12.5 MG PO (21:04)
[2021-09-20 06:16] VITALS: BP 110/71; PULSE 54; RESP 15; TEMP 36; O2SAT 98
[2021-09-20 08:25] VITALS: BP 126/76; PULSE 74; RESP 16; TEMP 37; O2SAT 97
[2021-09-20] MEDS: Multivitamin TAB 1 TAB PO (08:52)
[2021-09-20 11:50] VITALS: BP 122/71; PULSE 75; RESP 14; TEMP 36.6; O2SAT 98
[2021-09-20] MEDS: Acetaminophen 325 MG TAB 650 MG PO (11:53)
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
--- NOTE | 2021-09-20 14:44 | PDOC.CMPRO ---
- If Service Date Differs Date of service: 09/20/21 Time of Service: 14:44 Care Management Progress Note Richa was transitioned to SB-2 today as she is independent with PT and no longer has a skilled need for SB-1.
[2021-09-20 15:12] VITALS: BP 127/77; PULSE 82; RESP 18; TEMP 36.6; O2SAT 97
[2021-09-20] MEDS: QUEtiapine 25 MG TAB 12.5 MG PO ×2 (18:26→21:18)
[2021-09-20 19:20] VITALS: BP 115/74; PULSE 83; RESP 18; TEMP 36.6; O2SAT 97
[2021-09-20] MEDS: Melatonin 3 MG TAB PO (21:18)
[2021-09-21 07:00] VITALS: BP 122/61; PULSE 63; RESP 21; TEMP 37.2; O2SAT 98
[2021-09-21] MEDS: Multivitamin TAB 1 TAB PO (08:48)
[2021-09-21 14:20] VITALS: BP 118/63; PULSE 71; RESP 16; TEMP 36.4; O2SAT 99
[2021-09-21] MEDS: QUEtiapine 25 MG TAB 12.5 MG PO ×2 (18:11→21:06)
[2021-09-21] MEDS: Melatonin 3 MG TAB PO (21:05)
[2021-09-22 05:06] VITALS: BP 134/70; PULSE 77; RESP 20; TEMP 37; O2SAT 99
[2021-09-22 13:30] VITALS: TEMP 38.2
[2021-09-22] MEDS: Acetaminophen 325 MG TAB 650 MG PO (13:46)
[2021-09-22] MEDS: QUEtiapine 25 MG TAB 12.5 MG PO ×2 (19:09→20:58)
[2021-09-22] MEDS: Melatonin 3 MG TAB PO (21:25)
[2021-09-22 23:50] VITALS: BP 145/66; PULSE 78; RESP 18; TEMP 37.4; O2SAT 98
[2021-09-22 23:54] LABS: Source Nasal/Nares
[2021-09-23] VITALS (10 sets, daily range): BP systolic 128; BP diastolic 61; PULSE 78–89; RESP 18–20; TEMP 37.4–39.1; O2SAT 94–100
[2021-09-23 00:50] LABS: COVID-19 PCR POSITIVE (Negative)
[2021-09-23 06:45] LABS: Bilirubin Negative (Negative); Blood Trace-intact (Negative); Clarity Clear (Clear); Glucose Negative (Negative); Ketones Negative (Negative); Leukocyte Esterase Small (Negative); Nitrite Negative (Negative); Urobilinogen 0.2 EU/dL (Up TO 0.2)
[2021-09-23 06:53] LABS: Bacteria Rare HPF (Negative); C & S Indicated? Yes; Casts Negative LPF (Negative); Crystals Negative HPF (Negative); Epithelial Cells Few HPF (Negative); Mucus Trace (Negative); RBC 0-2 HPF (0-2)
[2021-09-23] MEDS: Multivitamin TAB 1 TAB PO (08:07)
[2021-09-23] MEDS: Acetaminophen 325 MG TAB 650 MG PO ×4 (08:07→20:33)
[2021-09-23] MEDS: QUEtiapine 25 MG TAB 12.5 MG PO ×3 (08:07→20:35)
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
[2021-09-23] MEDS: Melatonin 3 MG TAB PO (20:35)
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
[2021-09-24] VITALS (8 sets, daily range): BP systolic 127–156; BP diastolic 62–83; PULSE 74–87; RESP 18–21; TEMP 37.5–39.6; O2SAT 92–98
--- NOTE | 2021-09-24 | DI.RAD_ITS ---
Exam(s) XR PORTABLE CHEST AP EXAM: XR PORTABLE CHEST AP CLINICAL HISTORY: Fever, + covid PCR test. TECHNIQUE: 2D digital imaging was performed. COMPARISON: CR,XR XR CHEST 2V PA LATERAL from 09/11/2021 FINDINGS: Single AP portable view. Patient is rotated towards the left. Heart size is upper normal. The mediastinum is not widened. No new infiltrates nor pleural effusions. No pulmonary edema. No pneumothorax. IMPRESSION: No acute pulmonary findings on this mildly rotated AP portable view of the chest. DATA REPOSITORY: RADIATION DOSE DELIVERED: All CT scans at this facility use at least one of these dose optimization techniques: automated exposure control; mA and/or kV adjustment per patient size (includes targeted e xams where dose is matched to clinical indication); or iterative reconstruction.
--- NOTE | 2021-09-24 00:54 | NUR.NOTE ---
Patient has 38.8 Temp. Attempted to given PRN APAP. Patient is refusing, after multiple attempts to. Cooling measures implemented. Blankets removed, room temp turned down. Sp02 96% on RA, HR 86. Will continue to monitor and re-attempt after patient calms down. Sitter remains 1:1 at bedside right now.
[2021-09-24] MEDS: Acetaminophen 325 MG TAB 650 MG PO ×2 (04:37→09:11)
--- NOTE | 2021-09-24 04:57 | NUR.NOTE ---
Nursing Note: Patient took 650mg PRN APAP for fever.
[2021-09-24] MEDS: Docusate Sodium 100 MG CAP PO (07:43)
[2021-09-24] MEDS: Polyethylene Glycol 3350 17 GM PACKET PO (07:43)
[2021-09-24] MEDS: Multivitamin TAB 1 TAB PO (07:43)
[2021-09-24] MEDS: QUEtiapine 25 MG TAB 12.5 MG PO ×2 (09:11→21:00)
[2021-09-24] MEDS: Acetaminophen 650 MG SUPP PR (13:52)
--- NOTE | 2021-09-24 20:41 | W.PM.PROGNOT ---
Date of Service Date of service: 09/24/21 Time of Service: 20:41 Assessment and Plan Assessment and plan (1) COVID-19: Status: Acute Assessment and plan: Dxd after developing a fever the evening of 09/22. No hyoxia. CXR negative for acute findings. Acetaminophen prn for fever. UA negative as well. (2) Dementia: Status: Chronic Assessment and plan: Chronic and progressive. On Quetiapine. (3) Closed C6 fracture: Status: Acute Assessment and plan: No pain complaints currently. (4) Discharge planning issues: Status: Acute Assessment and plan: Notified DPOA of ongoing fevers. Considering comfort care if progresses and she declines. Subjective Subjective Patient reports: nausea and fever; denies diarrhea, vomiting or shortness of breath Interval history since last seen: Fever this AM. Was alert and conversant. No cough, CP. Exam Narrative Exam Narrative: Pt sitting up in bed. Confused, but very talkative. Const General: cooperative and no acute distress Nutritional Appearance: average body habitus Orientation: alert and confused Eyes General: appearance normal, both eyes and all related structures Cornea: corneas normal Resp Effort & Inspection: normal respiratory effort Auscultation: clear to auscultation bilaterally Cardio Rate: regular rate Rhythm: regular rhythm Heart Sounds: S1 normal and S2 normal Extrem General: no pedal edema and no calf tenderness Objective Last Vital Signs Temp 38.1 C H 09/24/21 14:58 Pulse 87 09/24/21 14:58 Resp 21 09/24/21 14:58 BP 127/62 09/24/21 14:58 Pulse Ox 94 09/24/21 14:58
[2021-09-24] MEDS: Melatonin 3 MG TAB PO (21:00)
--- NOTE | 2021-09-24 21:28 | NUR.NOTE ---
Patient seen sitting in recliner, resting comfortably watching TV. Patient allowed an assessment and her medications that were crushed and placed in vanilla pudding. Patient denied any needs at this time. Sitter remains 1:1 and continuously monitoring.
[2021-09-25 01:22] VITALS: TEMP 37.9
[2021-09-25 01:37] VITALS: TEMP 37.6
[2021-09-25] MEDS: Acetaminophen 325 MG TAB 650 MG PO ×2 (01:37→21:41)
--- NOTE | 2021-09-25 01:53 | NUR.NOTE ---
PRN APAP given PO for fever and neck pain.
[2021-09-25 08:40] VITALS: TEMP 36.6
--- NOTE | 2021-09-25 09:51 | PDOC.CMPRO ---
- If Service Date Differs Date of service: 09/25/21 Time of Service: 09:52 Care Management Progress Note S/O:Renita was transitioned into SB-2 status on 09/20/21. Unfortunately she has also contracted Covid. Renita was febrile and a repeat Covid test was done which was positive. She will not be able to transfer to a SNF until 10/02/21 even if a bed offer is received before then. Her DPOA is considering applying for self pay status until LTM is approved. Another referral with this information was sent to [facility] and YOSSI discussed the case with Mariposa from [employer] who will contact [facility] directly regarding the specifics of a self pay transfer. 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 Her POA Sincere Jhon and his daughter Suzanna Lopes are exploring the possibility of transferring eRnita to a SNF in self pay status until her LTM application is approved. YOSSI has coordinated these efforts.
[2021-09-25] MEDS: QUEtiapine 25 MG TAB 12.5 MG PO ×2 (12:30→21:34)
[2021-09-25 15:21] VITALS: BP 116/72
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
[2021-09-25] MEDS: Melatonin 3 MG TAB PO (21:34)
[2021-09-25 21:38] VITALS: BP 137/73; PULSE 83; RESP 20; TEMP 38.3; O2SAT 96
[2021-09-26 05:33] VITALS: TEMP 37
[2021-09-26 11:35] VITALS: TEMP 37.5
[2021-09-26 16:15] VITALS: BP 123/73; PULSE 83; RESP 18; TEMP 36.6; O2SAT 99
[2021-09-26] MEDS: QUEtiapine 25 MG TAB 12.5 MG PO ×2 (16:56→21:31)
[2021-09-26 20:20] VITALS: BP 141/79; PULSE 81; RESP 18; TEMP 36.6; O2SAT 99
[2021-09-26] MEDS: Melatonin 3 MG TAB PO (21:31)
[2021-09-27] MEDS: Polyethylene Glycol 3350 17 GM PACKET PO ×2 (07:44→21:00)
[2021-09-27] MEDS: Multivitamin TAB 1 TAB PO (07:45)
[2021-09-27] MEDS: Docusate Sodium 100 MG CAP PO ×2 (07:45→21:00)
[2021-09-27] MEDS: QUEtiapine 25 MG TAB 12.5 MG PO ×3 (07:45→20:59)
[2021-09-27 07:55] VITALS: BP 119/75; PULSE 65; RESP 16; TEMP 36.7; O2SAT 99
[2021-09-27] MEDS: Bisacodyl 5 MG TABEC 10 MG PO (12:12)
[2021-09-27 14:40] VITALS: BP 129/83; PULSE 82; RESP 18; TEMP 36.3; O2SAT 98
[2021-09-27] MEDS: Acetaminophen 325 MG TAB 650 MG PO (20:59)
[2021-09-27] MEDS: Melatonin 3 MG TAB PO (21:00)
[2021-09-28] MEDS: Polyethylene Glycol 3350 17 GM PACKET PO ×2 (08:05→20:17)
[2021-09-28] MEDS: Multivitamin TAB 1 TAB PO (08:06)
[2021-09-28 11:37] VITALS: PULSE 76; RESP 18; TEMP 36.4; O2SAT 100
--- NOTE | 2021-09-28 17:57 | W.PM.PROGNOT ---
Date of Service Date of service: 09/28/21 Time of Service: 17:57 Assessment and Plan Assessment and plan (1) Abdominal pain: Status: Acute Assessment and plan: routine labs, cmp, lipase cbc and monitor abdominal exam is benign (2) COVID-19: Status: Acute Assessment and plan: will retest today day 7 to see if she can come off precautions, remains asymptomatic Dxd after developing a fever the evening of 12. No hyoxia. CXR negative for acute findings. Acetaminophen prn for fever. UA negative as well. (3) Dementia: Status: Chronic Assessment and plan: Chronic and progressive. On Quetiapine. (4) Closed C6 fracture: Status: Acute Assessment and plan: No pain complaints currently. (5) Discharge planning issues: Status: Acute Assessment and plan: [place] to interview on Thursday discussed with DR Guardado Subjective Subjective Interval history since last seen: asked to see patient for c/o right sided abdominal pain. appetite unchanged but remains poor. no fever. pain reported as intermittent over the day. on my exam patient is unable to provide history d/t severe advanced dementia, which is baseline. she is sitting in her chair in no acute distress. abdomen is soft with no guarding. last BM today, no diarrhea, no vomiting. Exam Const General: cooperative and no acute distress Nutritional Appearance: average body habitus Orientation: alert and confused Eyes General: appearance normal, both eyes and all related structures Cornea: corneas normal Resp Effort & Inspection: normal respiratory effort Cardio Rate: regular rate GI Inspection: normal to inspection and obesity Palpation: soft, not firm, no guarding, no hernias and no masses Extrem General: no pedal edema and no calf tenderness Objective Last Vital Signs Temp 36.4 C 09/28/21 11:37 Pulse 76 09/28/21 11:37 Resp 18 09/28/21 11:37 BP 129/83 09/27/21 14:40 Pulse Ox 100 09/28/21 11:37
[2021-09-28] MEDS: QUEtiapine 25 MG TAB 12.5 MG PO ×2 (18:23→20:17)
[2021-09-28] MEDS: Acetaminophen 325 MG TAB 650 MG PO (18:23)
[2021-09-28] MEDS: Docusate Sodium 100 MG CAP PO (20:17)
[2021-09-28 20:20] VITALS: PULSE 61; RESP 18; TEMP 37.4; O2SAT 96
[2021-09-28] MEDS: Melatonin 3 MG TAB PO (20:20)
--- NOTE | 2021-09-28 20:55 | NUR.NOTE ---
Patient allowed assessment to be performed and PO medictions. This machine sign writer attempted to COVID swab patients nares after thorough explanation and pt stating she would allow. When swab entered right nare, patient quickly swatted swab stick away and screamed, Just leave me alone wont ya! This machine sign writer tried to de-escalate patient with discussion on purpose of swabbing. Patient told me to, Go to bed, Quick sticking me wont you! After a few minutes, lab entered the room to try an attempt to obtain labs. Patient again was acting like she would be compliant with extended education and explanation of purposes. Pt held her hand out and allowed this machine sign writer to hold it, then i held her opposite hand to provide a safe attempt for phlebotomy. But as soon as she bent down and tried to poke patient, patient ripped hands away, sat up and screamed, Stop it! Stop it! Why don't you just leave me alone. Don't i have rights anymore? Patient left to relax and rest. Will re-attempt to obtain swab in ~ 1 hour after HS medication activate.
[2021-09-29 00:11] LABS: Source Nasal/Nares
[2021-09-29 03:21] VITALS: TEMP 36.9
[2021-09-29 07:12] LABS: Bilirubin Negative (Negative); Blood Negative (Negative); Clarity Clear (Clear); Glucose Negative (Negative); Ketones Negative (Negative); Leukocyte Esterase Negative (Negative); Nitrite Negative (Negative); pH 6.5 (5-8)
[2021-09-29 08:45] VITALS: BP 134/76; PULSE 73; RESP 18; TEMP 36.7; O2SAT 98
[2021-09-29] MEDS: Docusate Sodium 100 MG CAP PO ×2 (08:46→19:49)
[2021-09-29] MEDS: Multivitamin TAB 1 TAB PO (08:47)
[2021-09-29] MEDS: Polyethylene Glycol 3350 17 GM PACKET PO ×2 (08:47→19:49)
[2021-09-29 14:11] VITALS: BP 139/84; PULSE 82; RESP 18; TEMP 36.7; O2SAT 98
[2021-09-29] MEDS: QUEtiapine 25 MG TAB 12.5 MG PO ×2 (14:50→19:49)
[2021-09-29] MEDS: Acetaminophen 325 MG TAB 650 MG PO (14:50)
[2021-09-29 18:50] VITALS: O2SAT 96
[2021-09-29] MEDS: Melatonin 3 MG TAB PO (19:49)
[2021-09-29 19:53] VITALS: BP 142/76; PULSE 74; RESP 18; TEMP 37.2; O2SAT 96
[2021-09-30 06:41] VITALS: PULSE 65; RESP 16; TEMP 36.8; O2SAT 99
[2021-09-30] MEDS: Polyethylene Glycol 3350 17 GM PACKET PO (08:23)
[2021-09-30] MEDS: QUEtiapine 25 MG TAB 12.5 MG PO ×3 (08:29→20:58)
[2021-09-30 12:19] LABS: COVID-19 PCR POSITIVE (Negative)
[2021-09-30] MEDS: Melatonin 3 MG TAB PO (20:58)
--- NOTE | 2021-09-30 23:13 | NUR.NOTE ---
Nursing Note: pt refused vitals
[2021-10-01 07:38] VITALS: PULSE 61; O2SAT 98
[2021-10-01] MEDS: Multivitamin TAB 1 TAB PO (08:09)
[2021-10-01] MEDS: Polyethylene Glycol 3350 17 GM PACKET PO ×2 (08:09→20:45)
[2021-10-01] MEDS: Docusate Sodium 100 MG CAP PO (08:09)
[2021-10-01 08:17] VITALS: BP 122/76; PULSE 71; RESP 18; TEMP 36.9; O2SAT 97
--- NOTE | 2021-10-01 13:20 | PDOC.CMACT ---
- If Service Date Differs Date of service: 10/01/21 Time of Service: 13:20 Care Management Activity Note Richa remains in swing bed awaiting disposition. She continues to enjoy ambulating through the hallways with staff and visiting with her DPOA and natural supports. YOSSI spoke with Belinda of Triage Register Nurse at the [facility], who reported anticipating visiting 10/02/21 or 10/03/21, Belinda reported that she will call CM to confirm. YOSSI also outreached to [facility] to determine admission status/bed offer. Mariposa reports patient was declined admission at the facility. YOSSI left for Brittany Poole to inquire as to LTM status. YOSSI asked [facility] to fax referral to [facility]. Richa has been advocating for returning home over the last few days. YOSSI notified [facility] of inability to continue to hold Dot here against her will. One-on-one staff provided to keep Dot company as she is wanting to leave, she is appropriately asking to go home, though unable to retain information.
[2021-10-01] MEDS: QUEtiapine 25 MG TAB 12.5 MG PO ×2 (15:41→20:45)
[2021-10-01] MEDS: Melatonin 3 MG TAB PO (21:02)
--- NOTE | 2021-10-01 23:40 | NUR.NOTE ---
pt refuse vitals Nursing Note:
--- NOTE | 2021-10-02 05:34 | NUR.NOTE ---
Nursing Note: Pt refuses most care She will not remove the 3 layers of clothes . When toileting this AM I had to rip off the soiled pullups. she would not clean up her bottom or let me help without screaming.
[2021-10-02] MEDS: QUEtiapine 25 MG TAB 12.5 MG PO ×2 (13:45→20:59)
[2021-10-02 15:39] VITALS: PULSE 92; RESP 20; TEMP 36.1; O2SAT 96
--- NOTE | 2021-10-02 15:56 | CHAPLAIN ---
Richa was sitting at the edge of her bed when I visited. The tv was on, but she was not paying attention to it. (Earlier Extruder Operator Vertical note state that Richa likes to have the tv on all the time. I asked if she was cold because she appeared to be wrapping herself in her shirt. She said no and showed me that her flannel shirt was thick. She said she was very hungry though. There was a half eaten pudding on her table but she wasn't interested in that. After checking with nursing, I brought her some crackers and she said thank you when I opened the package, other than that, she didn't say too much.
[2021-10-02] MEDS: Melatonin 3 MG TAB PO (20:59)
--- NOTE | 2021-10-02 22:26 | NUR.NOTE ---
Nursing Note: Offered patient clean pajamas for sleep. pt declined and started to get upset how about we just dont. this RN offered to help her go to the bathroom and she declined. patient took her medications crushed in vanilla ice cream with no issues.
[2021-10-03 07:35] VITALS: PULSE 79; RESP 20; O2SAT 98
[2021-10-03] MEDS: Acetaminophen 325 MG TAB 650 MG PO ×2 (07:57→19:22)
[2021-10-03] MEDS: Multivitamin TAB 1 TAB PO (07:57)
[2021-10-03] MEDS: QUEtiapine 25 MG TAB 12.5 MG PO ×3 (07:58→19:22)
[2021-10-03 11:52] VITALS: TEMP 36.7
--- NOTE | 2021-10-03 13:43 | NUR.NOTE ---
Report given to Nurse Sonia from [facility]. Regarding patients behaviors, medications, and personal care regimen.
[2021-10-03 15:08] VITALS: PULSE 61; RESP 16; TEMP 36.9; O2SAT 98
--- NOTE | 2021-10-03 15:24 | PDOC.CMACT ---
- If Service Date Differs Date of service: 10/03/21 Time of Service: 15:24 Care Management Activity Note S/O: Richa was lying in bed resting when CM met with her today. Per RN, she did not have a good morning, as she was agitated when she woke up. Her RN reported that she was asking for help, stating that she needed to use the bathroom, but when they attempted to assist her, she wouldn't allow them to help. She was redirected by a nurse that is familiar with her, and she was able to use the bathroom. She was given a PRN seroquel, and has slept for most of the morning. Belinda and Sonia from the [facility] visited Dot today, who are considering her for admission at the [facility]. They will have a conversation with her DPOA in order to determine if she will be appropriate for their facility. CM will continue to follow. A: Richa is an 80 year old female admitted to [facility] on 09/11/21 for fall, ambulatory dysfunction. P: Richa will likely be transferred to a [facility] facility for long term acute care registered nurse care when a payer source is available. A long term acute care registered nurse Medicaid application has been submitted by Juliette Lopes who has been granted emergency guardianship.
[2021-10-03] MEDS: Docusate Sodium 100 MG CAP PO (19:22)
[2021-10-03] MEDS: Polyethylene Glycol 3350 17 GM PACKET PO (19:22)
[2021-10-03] MEDS: Melatonin 3 MG TAB PO (19:22)
[2021-10-03 23:21] VITALS: TEMP 36.2
[2021-10-04 11:13] VITALS: PULSE 90; RESP 18; TEMP 36.5; O2SAT 97
[2021-10-04] MEDS: Acetaminophen 325 MG TAB 650 MG PO (19:23)
[2021-10-04] MEDS: QUEtiapine 25 MG TAB 12.5 MG PO ×2 (19:23)
[2021-10-04] MEDS: Polyethylene Glycol 3350 17 GM PACKET PO (19:23)
[2021-10-04] MEDS: Docusate Sodium 100 MG CAP PO (19:26)
[2021-10-05] MEDS: Docusate Sodium 100 MG CAP PO (20:00)
[2021-10-05] MEDS: QUEtiapine 25 MG TAB 12.5 MG PO ×2 (20:00)
[2021-10-05] MEDS: Melatonin 3 MG TAB PO (20:00)
[2021-10-05] MEDS: Polyethylene Glycol 3350 17 GM PACKET PO (20:00)
[2021-10-06 07:30] VITALS: BP 151/89; PULSE 96; RESP 18; TEMP 37.1; O2SAT 95
[2021-10-06] MEDS: QUEtiapine 25 MG TAB 12.5 MG PO (08:29)
[2021-10-07 09:39] VITALS: BP 144/85; PULSE 75; RESP 18; TEMP 37; O2SAT 100
[2021-10-07] MEDS: Polyethylene Glycol 3350 17 GM PACKET PO (09:48)
--- NOTE | 2021-10-07 11:28 | W.NUTRFU ---
Date of service: 10/07/21 Time of Service: 11:28 Nutrition Note NOTE: Richa is following a regular meal plan but po intake has declined in recent week- frequent meal refusals and completing less than 50% of meals. Requested updated weight- nursing reports it is difficult to get her to stand on scale. BMI on low end of normal for age. Nursing reports po intake low as often agitated and wanting to leave facility. Will continue to offer meal preferences and supplement as needed Time Spent in Nutritional Counseling and Treatment: 5
[2021-10-07] MEDS: Melatonin 3 MG TAB PO (21:20)
[2021-10-07] MEDS: QUEtiapine 25 MG TAB 12.5 MG PO (21:20)
[2021-10-08 10:10] VITALS: BP 130/60; PULSE 77; RESP 17; TEMP 37; O2SAT 100
[2021-10-08] MEDS: Polyethylene Glycol 3350 17 GM PACKET PO (10:11)
--- NOTE | 2021-10-08 10:25 | W.NUTCONSULT ---
Date of service: 10/08/21 Time of Service: 10:25 Nutritional Consult ASSESSMENT: Richa has lost 10 lbs since admission (08/24/21) which is a 7% weight loss- considered significant and of concern. BMI on low end of normal for age. PO intake has been decreasing in last week with frequent meal refusals and completing only 25% of meals when she does eat. At high nutritional risk. Estimated Needs: [id number] kcal, 63-81 g protein, 45-55 g fat. Will need to complete > 75% of meals to meet macronutrient needs. NUTRITIONAL DIAGNOSIS: Moderate Malnutrition in view of significant weight loss in last month due to inadequate po intake INTERVENTION: recommend appetite stimulant such as remeron will continue to offer meal preferences and offer supplements MONITORING AND EVALUATION: weight, po intake, labs Time Spent in Nutritional Counseling and Treatment: 5
--- NOTE | 2021-10-08 15:30 | CHAPLAIN ---
Richa was resting in bed when I visited. She was holding a doll. She sometime seems tense about not knowing what is going on, and then can change to be more calm. I tried to reassure that she's in a safe place and we're heard to take care of her. I will continue to visit.
[2021-10-08] MEDS: Melatonin 3 MG TAB PO (20:20)
[2021-10-08] MEDS: QUEtiapine 25 MG TAB 12.5 MG PO (20:20)
[2021-10-09] MEDS: Multivitamin TAB 1 TAB PO (07:41)
[2021-10-09] MEDS: Docusate Sodium 100 MG/10 ML CUP PO ×2 (07:41→20:52)
[2021-10-09] MEDS: Polyethylene Glycol 3350 17 GM PACKET PO ×2 (07:41→20:51)
[2021-10-09 08:51] VITALS: TEMP 37.3
[2021-10-09] MEDS: MORPHine 4 MG/ML SYR SC (15:09)
--- NOTE | 2021-10-09 15:51 | DI.CT_ITS ---
Exam(s) CT ABDOMEN PELVIS WO EXAM: CT ABDOMEN PELVIS WO CLINICAL HISTORY: left flank pain TECHNIQUE: COMPARISON: CT CT THORACIC LUMBAR SPINE REC from 08/24/2021 FINDINGS: CT examination of the abdomen and pelvis was performed without contrast administration. The examination is severely limited by motion artifact. Liver and spleen are grossly unremarkable. Note is made of cholelithiasis in a distended gallbladder . No gross biliary dilatation. Pancreas grossly unremarkable. No urinary tract calcification or obstruction. No abdominal aortic aneurysm. No significant abdomin al wall hernia. No gross bowel obstruction. Hiatal hernia noted. Large quantity of fecal material in the rectosigmo id consistent with constipation. No gross abdominal or pelvic adenopathy. IMPRESSION: Examination is significantly limited due to motion artifact. Cholelithiasis noted. Large quantity of fecal material in the rectosigmoid, consistent with constipation. RADIATION DOSE DELIVERED: 862.48mGy.cm Total DLP !Error CTDIvol RADIATION OPTIMIZATION: All CT scans at this facility use at least one of these dose optimization te chniques: automated exposure control; mA and/or kV adjustment per patient size (includes targeted exa ms where dose is matched to clinical indication); or iterative reconstruction.
--- NOTE | 2021-10-09 16:09 | CMPROGNOTE_ITS ---
- If Service Date Differs Date of service: 10/09/21 Time of Service: 16:09 Care Management Progress Note S/O: Renita has been sleeping a lot, and enjoys walking the halls when she is able to. She has been complaining of some pain, and per RN, it has been difficult to assess her pain. Per RN, she is resistant to care, and it took three people to get her to the commode this morning to urinate, in an attempt to reduce her pain. CM requested that Palliative care discuss goals of care with her DPOA, Sincere. CM will continue to follow. A: Richa is an 80 year old female admitted to [facility] on 09/11/21 for fall, ambulatory dysfunction. P: Richa will likely be transferred to a retirement facility for penitentiary care when a payer source is available. A penitentiary Medicaid application has been submitted by Juliette Lopes who has been granted emergency guardianship.
[2021-10-09] MEDS: Bisacodyl 10 MG SUPP PR (18:31)
[2021-10-09 18:34] VITALS: TEMP 39.7
[2021-10-09 18:38] LABS: Bilirubin Negative (Negative); Blood Negative (Negative); Clarity Clear (Clear); Glucose Negative (Negative); Ketones 15 mg/dL (Negative); Leukocyte Esterase Negative (Negative); Nitrite Negative (Negative)
[2021-10-09] MEDS: Mineral Oil-Enema 133 ML BTL PR (20:51)
[2021-10-09] MEDS: Melatonin 3 MG TAB PO (20:51)
[2021-10-09] MEDS: QUEtiapine 25 MG TAB 12.5 MG PO (20:51)
[2021-10-09] MEDS: Acetaminophen 325 MG TAB 650 MG PO (21:18)
[2021-10-09 23:29] VITALS: TEMP 37
[2021-10-10 09:37] VITALS: PULSE 87; RESP 18; TEMP 36.7; O2SAT 97
[2021-10-10] MEDS: QUEtiapine 25 MG TAB 12.5 MG PO (12:35)
--- NOTE | 2021-10-10 14:31 | CHAPLAIN ---
Richa always asks me what I want after I say hello to her. Today she told me about her baby (doll) that she had with her. She also talked about her father who was a becerril. Other parts of the conversation were less coherent.
[2021-10-10] MEDS: Magnesium Citrate 300 ML BTL PO (15:58)
--- NOTE | 2021-10-10 19:43 | PCPN_ITS ---
Date of service: 10/10/21 Time of Service: 16:00 Assessment and Plan Assessment and plan (1) Abdominal pain: Status: Acute (2) Dementia: Status: Chronic (3) Palliative care patient: Status: Acute Assessment and plan: Hamlet's dementia is advanced. She is agitated and will not accept help or allow examination. I spoke with the hospitalist team. In the hopes of helping Hamlet to cooperate with exams and meds, they increased her seroquel. I do think this is a good next step in her care. [facility] management is working on payment source for Hamlet in a custodial care facility. Hopefully this will be in place soon as a consistent environment in a NH may improve her willingness to take needed meds and improve her constipation. Hopefully Hamlet will cooperate with meds, but if her pain increases and she continues to refuse help, more drastic measures may be needed. Subjective Subjective Interval history since last seen: Staff was very concerned about the level of pain Hamlet was in at times. She continues to have constipation and refuses bowel meds. Also staff does not feel she understands the mechanics of urination and defecation and holds both in. Palliative sedation was mentioned by staff due to observation of severe agitation and pain from the constipation. Her dementia does not allow Hamlet to accept help. Hamlet told me to leave when I went to see her. She said words, but they were non sensical Exam Narrative Exam Narrative: Hamlet would not allow me to examine her. She pushed me away Objective Last Vital Signs Temp 98.1 F 10/10/21 09:37 Pulse 87 10/10/21 09:37 Resp 18 10/10/21 09:37 BP 130/60 10/08/21 10:10 Pulse Ox 97 10/10/21 09:37
[2021-10-10] MEDS: Polyethylene Glycol 3350 17 GM PACKET PO (20:14)
[2021-10-10] MEDS: Melatonin 3 MG TAB PO (20:14)
[2021-10-10] MEDS: Docusate Sodium 100 MG/10 ML CUP PO (20:14)
[2021-10-10] MEDS: QUEtiapine 25 MG TAB PO (20:14)
[2021-10-11] MEDS: QUEtiapine 25 MG TAB 12.5 MG PO ×2 (08:36→14:29)
[2021-10-11] MEDS: Docusate Sodium 100 MG/10 ML CUP PO ×2 (08:36→19:50)
[2021-10-11] MEDS: Polyethylene Glycol 3350 17 GM PACKET PO ×2 (08:37→19:49)
[2021-10-11] MEDS: Magnesium Citrate 300 ML BTL PO (08:37)
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
--- NOTE | 2021-10-11 16:28 | CHAPLAIN ---
Richa was sleeping when I went to visit. I left here a prayer shawl.
[2021-10-11] MEDS: Melatonin 3 MG TAB PO (19:49)
[2021-10-11] MEDS: Acetaminophen 325 MG TAB 650 MG PO (19:50)
[2021-10-11] MEDS: QUEtiapine 25 MG TAB PO (19:50)
[2021-10-11] MEDS: LORazepam 2 MG/1 ML Oral Concentrate 0.5 MG PO (20:20)
[2021-10-12] MEDS: QUEtiapine 25 MG TAB 12.5 MG PO (06:18)
[2021-10-12] MEDS: Haloperidol 5 MG/ML VIAL 4 MG IM (09:00)
== END 2021-10-12 09:20 | DRG 884 ==
LOC: ER 08:45 → MS 13:28
PROVIDERS: Internal Medicine; Nurse Practitioner Acute Care; Admitting Provider Family Medicine; Emergency Provider Physician Assistant; PCP Family Medicine; Visit Provider Family Medicine
DX: F03.91 Unspecified dementia, unspecified severity, with behavioral disturbance (principal); U07.1 COVID-19; S12.591D Other nondisplaced fracture of sixth cervical vertebra, subsequent encounter for fracture with routine healing; Z91.83 Wandering in diseases classified elsewhere; R10.9 Unspecified abdominal pain; K59.00 Constipation, unspecified; T50.906A Underdosing of unspecified drugs, medicaments and biological substances, initial encounter; Z91.130 Patient's unintentional underdosing of medication regimen due to age-related debility; W19.XXXA Unspecified fall, initial encounter; V87.7XXD Person injured in collision between other specified motor vehicles (traffic), subsequent encounter
CPT/HCPCS: 80048; 80053; 83690; 87635; 97110; 97116; 97163; 97530; 99305; 99309; 99316; Q3014; 70450; 71045; 71046; 72040; 72125; 74176; 81003; 81015; 83735; 84484; 85025; 87086; J1630; J2060; J2270; J3490

== ENCOUNTER 2021-12-10 09:35 | Inpatient (IN) | payer MEDICARE, MEDICAID, SELFPAY ==
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
[2021-12-10 10:10] VITALS: BP 153/72; PULSE 94; RESP 16; TEMP 36.8; O2SAT 97
[2021-12-10 11:03] LABS: Source Nasal/Nares
[2021-12-10 11:46] VITALS: BP 153/72; PULSE 94; RESP 16; TEMP 36.8; O2SAT 97
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
[2021-12-10 13:18] LABS: COVID-19 PCR Negative (Negative)
[2021-12-10] MEDS: QUEtiapine 100 MG TAB 200 MG PO (17:45)
[2021-12-10] MEDS: Docusate Sodium 100 MG/10 ML CUP PO (21:44)
[2021-12-10] MEDS: Mirtazapine 15 MG TAB PO (21:44)
[2021-12-10] MEDS: QUEtiapine 100 MG TAB 300 MG PO (21:44)
[2021-12-10] MEDS: Acetaminophen 325 MG TAB 650 MG PO (21:44)
[2021-12-10] MEDS: Memantine 5 MG TAB 10 MG PO (21:44)
[2021-12-11 07:43] VITALS: BP 143/81; PULSE 92; RESP 18; TEMP 36.1; O2SAT 94
[2021-12-11] MEDS: Omeprazole 20 MG CAPCR PO (08:51)
[2021-12-11] MEDS: Docusate Sodium 100 MG/10 ML CUP PO ×2 (08:51→20:03)
[2021-12-11] MEDS: QUEtiapine 100 MG TAB 200 MG PO ×2 (08:51→12:14)
[2021-12-11] MEDS: Memantine 5 MG TAB 10 MG PO ×2 (08:51→20:03)
--- NOTE | 2021-12-11 09:16 | PDOC.CMPRO ---
- If Service Date Differs Date of service: 12/11/21 Time of Service: 09:16 Care Management Progress Note S/O: Richa returned from [facility] at [facility] on 12/10/21 after her inpatient psychiatric stabilization. Richa had an acute medical inpatient stay during the time that she spent at [facility]. She was evaluated by PT, who found that she is deconditioned from her long hospitalization, therefore she can be skilled in SWB1. CM has initiated a PA from her commercial MCR replacement in order to bill for her skilled stay. CM will follow up on referrals that were sent to facilities while at [facility], and will send updated clinicals as requested. CM will continue to follow. A: Richa is an 81 year old female admitted to [facility] on 12/10/21 for dementia. P: Richa is receiving skilled services on SWB1 status. She had a qualifying stay at [facility] from 11/28/21 to 12/03/21, as she was treated for pneumonia and sepsis before returning to [facility] for continued stabilization. She returned to [facility] on 12/10/21 on SWB1, awaiting placement. CM will follow up on SNF referrals. CM will continue to support discharge planning considerations.
--- NOTE | 2021-12-11 15:45 | PT.INTREAT ---
Date of service: 12/11/21 Time of Service: 15:45 PT Notes Visit Reasons: Dementia with Behavioral Disturbance Physical Therapy Inpatient Treatment Note Date: 12/11/2021 Precautions: Fall. Standard. Activity as tolerated.? Impaired safety awareness. Subjective: Did agree to walking Kat but could not seem to walk farther due to discomfort in her L toes wearing the slipper sock under her shoes. Needed more cueing to participate. Objective: General Observation: Supine in bed.? Mental Status: Sleeping when PT arrived but was able to wake up for session. Verbal responses mostly inappropriate,? answers off-tangent 90% of the time.? Able to say thank you for anything done for her. Pain: None expressed verbally and non-verbally Vital Signs: WNL as closely monitored by nursing Bed Mobility/Transfers: Supine to sit minimal assist with HOB 30 degrees Sit to stand minimal assist Stand to sit minimal assist Bed to reclining chair minimal assist Reclining chair to bed minimal assist Gait: 20 feet with conact pablo to belt and hand held assist to L UE as she did not want to hold onto wheelchair handles today, distracted by her L toes hurting. Was unable to redirect her to walking after the thick socks were taken. Balance: Static Sitting: Good Dynamic Sitting: Fair Static Standing: Fair Dynamic Standing: Poor ASSESSMENT: Activity engagement decreased today. Seems weaker and harder to redirect compared to yesterday. More confused. Needed maximal verbal, visual, and tactile cueing to participate in session. Complained of her L toes hurting with placement of B shoes before walking which subsided with removal of thick slipper sock on that side. Unable to walk as far as she did yesterday. DISCHARGE RECOMMENDATIONS: Patient will benefit from [facility] placement for continued skilled physical therapy services in order to progress mobility level, strength, and balance in preparation for a safe discharge to home.? Consider LTC placement. TREATMENT CODE/TIME: 81285 x 33 minutes beginning at 15:45 PM.
--- NOTE | 2021-12-11 17:57 | CMSCP_ITS ---
- If Service Date Differs Date of service: 12/11/21 Time of Service: 17:57 Swingbed Plan of Care Plan of care: SWING BED PROGRAM ACTIVITIES/DISCHARGE PLAN OF CARE ACTIVITIES PLAN Date: 12/11/21 Identified Need: Life enrichment during extended hospital stay in [facility]. Intervention/Plan: Activities offered include soft cart items, busy blanket, TV. Music therapy/Reiki offered when available. Initials KM DISCHARGE PLAN Date: 12/11/21 Identified Need: Strengthening, improved mobility for more independence. Short term rehab which will transition to supervisor intermediates care. Intervention/Plan: Richa will work with PT to gain strength and independence with mobility. Referrals will be sent/followed up on for STR-LTC. Initials VLAD
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
[2021-12-11] MEDS: Mirtazapine 15 MG TAB PO (20:03)
[2021-12-11] MEDS: Acetaminophen 325 MG TAB 650 MG PO (20:04)
[2021-12-11] MEDS: QUEtiapine 100 MG TAB 300 MG PO (20:04)
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
[2021-12-12] MEDS: Acetaminophen 325 MG TAB 650 MG PO ×2 (09:57→20:18)
[2021-12-12] MEDS: Polyethylene Glycol 3350 17 GM PACKET PO (09:57)
[2021-12-12] MEDS: Docusate Sodium 100 MG/10 ML CUP PO ×2 (09:57→20:18)
[2021-12-12] MEDS: QUEtiapine 100 MG TAB 200 MG PO ×2 (09:58→12:29)
[2021-12-12 10:12] VITALS: BP 140/72; PULSE 71; RESP 18; TEMP 36.7; O2SAT 95
[2021-12-12] MEDS: Memantine 5 MG TAB 10 MG PO ×2 (12:29→20:19)
--- NOTE | 2021-12-12 15:17 | PT.INTREAT ---
Date of service: 12/12/21 Time of Service: 13:02 PT Notes Visit Reasons: Dementia with Behavioral Disturbance Inpatient Physical Therapy Treatment Note [facility] Date: 12/12/2021 PRECAUTIONS: Activity as tolerated, confusion SUBJECTIVE: Dot is pleasant and agreeable to participating in PT. She speaks in nonsensical sentences, but is conversational and pleasant throughout. OBJECTIVE: PAIN: No complaints of pain BED MOBILITY/TRANSFERS Sit-stand: SBA Stand-sit: SBA GAIT Assistive Device: Patient propels wheelchair Weight bearing: Full Assist: CGA Distance: 120' Deviation: Slow pacing, standing rest due to confusion ASSESSMENT: Patient tolerated session well, without complaint. She appears limited due to confusion, but is easily redirected. PLAN: Continue with general functional mobility training and global strengthening, as indicated by POC. TREATMENT CODE/TIME: 20 minutes; 83719 (13:02)
[2021-12-12] MEDS: Mirtazapine 15 MG TAB PO (20:18)
[2021-12-12] MEDS: QUEtiapine 100 MG TAB 300 MG PO (20:19)
[2021-12-13] MEDS: Memantine 5 MG TAB 10 MG PO ×2 (08:43→19:49)
[2021-12-13] MEDS: Docusate Sodium 100 MG/10 ML CUP PO ×2 (08:43→19:49)
[2021-12-13] MEDS: Acetaminophen 325 MG TAB 650 MG PO ×2 (08:43→19:49)
[2021-12-13] MEDS: QUEtiapine 100 MG TAB 200 MG PO ×2 (08:43→14:03)
[2021-12-13] MEDS: Polyethylene Glycol 3350 17 GM PACKET PO (08:43)
--- NOTE | 2021-12-13 14:26 | PT.INTREAT ---
PT Notes Visit Reasons: Dementia with Behavioral Disturbance Inpatient Physical Therapy Treatment Note [facility] Date: 12/13/21 SUBJECTIVE: Dot offers no complaints. She was agreeable to a walk. OBJECTIVE: [] PAIN: did not verbalize pain however noted her to frequently rub her right lateral thigh/knee. When asked if she was hurting she never responded. BED MOBILITY/TRANSFERS Supine-sit: SBA Sit-supine: SBA Sit-stand: SBA Stand-sit: SBA GAIT Assistive Device: DOCUMENTATION DESIGNER Weight bearing: full Assist: CGA/DOCUMENTATION DESIGNER Distance: 175'' ASSESSMENT: Renita was very talkative this pm. She did not make much sense, but was very pleasant. She was able to don her shoes with little assistance. No LOB with ambulation. Frequently rubbing right knee/ thigh when wt bearing. Needs consistent cues for direction as she gets lost. PLAN: continue with her functional mobility tolerances as per PT POC. TREATMENT CODE/TIME: 20 min ([id number])
[2021-12-13] MEDS: Mirtazapine 15 MG TAB PO (21:49)
[2021-12-13] MEDS: QUEtiapine 100 MG TAB 300 MG PO (21:49)
--- NOTE | 2021-12-14 09:28 | PT.INNT ---
Date of service: 12/14/21 Time of Service: 09:20 PT Notes Visit Reasons: Dementia with Behavioral Disturbance 12/14/2021 Attempted to see patient this morning but was found to be very confused and upset. Was advised to hold on PT at that time.
[2021-12-14] MEDS: QUEtiapine 100 MG TAB 200 MG PO (09:32)
[2021-12-14] MEDS: OLANZapine 2.5 MG TAB PO (09:32)
[2021-12-14] MEDS: LORazepam 0.5 MG TAB PO (09:32)
[2021-12-14] MEDS: Memantine 5 MG TAB 10 MG PO ×2 (09:32→19:52)
[2021-12-14 18:00] VITALS: PULSE 84; RESP 14; TEMP 36.7; O2SAT 96
[2021-12-14] MEDS: Acetaminophen 325 MG TAB 650 MG PO (19:51)
[2021-12-14] MEDS: Timolol 0.5% 5 ML BTL OP (20:01)
[2021-12-14] MEDS: Mirtazapine 15 MG TAB PO (21:26)
[2021-12-14] MEDS: Latanoprost 0.005% 2.5 ML BTL OP (21:26)
[2021-12-14] MEDS: QUEtiapine 100 MG TAB 300 MG PO (21:26)
[2021-12-15] MEDS: LORazepam 0.5 MG TAB PO (02:31)
[2021-12-15] MEDS: Bisacodyl 5 MG TABEC PO ×2 (03:04→09:02)
[2021-12-15] MEDS: OLANZapine 2.5 MG TAB PO ×2 (03:04→08:58)
[2021-12-15] MEDS: Acetaminophen 325 MG TAB 650 MG PO (08:57)
[2021-12-15] MEDS: QUEtiapine 100 MG TAB 200 MG PO (08:57)
--- NOTE | 2021-12-15 11:20 | PT.INNT ---
Date of service: 12/15/21 Time of Service: 11:15 PT Notes Visit Reasons: Dementia with Behavioral Disturbance 12/15/2021 Advised by Nursing staff to let patient sleep when attempting to see this morning for PT.
[2021-12-15 17:20] VITALS: BP 166/88; PULSE 93; RESP 24; TEMP 36.6; O2SAT 94
[2021-12-15] MEDS: Memantine 5 MG TAB 10 MG PO (21:27)
[2021-12-15] MEDS: Mirtazapine 15 MG TAB PO (21:28)
[2021-12-15] MEDS: Docusate Sodium 100 MG/10 ML CUP PO (23:38)
--- NOTE | 2021-12-16 05:38 | NUR.NOTE ---
PT very sad and crying. seems to be partialy past emotions and pain. this went on for a few hours . day shift reported that she had an episode in the afternoon. She has expressed that she is in alot of pain but refuses to take meds for it .
[2021-12-16] MEDS: Bisacodyl 5 MG TABEC PO (07:11)
[2021-12-16] MEDS: Memantine 5 MG TAB 10 MG PO ×2 (07:11→22:28)
[2021-12-16] MEDS: QUEtiapine 100 MG TAB 200 MG PO ×2 (07:11→13:31)
[2021-12-16] MEDS: Polyethylene Glycol 3350 17 GM PACKET PO (07:13)
[2021-12-16] MEDS: Docusate Sodium 100 MG/10 ML CUP PO (07:13)
[2021-12-16] MEDS: Milk of Magnesia 30 ML CUP PO (09:10)
[2021-12-16 10:16] VITALS: PULSE 85; RESP 16; TEMP 36.7; O2SAT 95
[2021-12-16] MEDS: Acetaminophen 325 MG TAB 650 MG PO ×2 (13:31→22:27)
--- NOTE | 2021-12-16 13:48 | PT.INTREAT ---
Date of service: 12/16/21 Time of Service: 13:10 PT Notes Visit Reasons: Dementia with Behavioral Disturbance Inpatient Physical Therapy Treatment Note [facility] Date: 12/16/2021 PRECAUTIONS: Fall SUBJECTIVE: She was agreeable to a walk. OBJECTIVE: ? PAIN: Complained of pain in right anterior thigh. Noted her to frequently rub her right lateral thigh while walking. ? BED MOBILITY/TRANSFERS? Supine-sit: CGA? Sit-supine: Assist from Nurse Weston to get legs in bed. ? Sit-stand: CGA ? Stand-sit: CGA ? GAIT? Assistive Device: DIRECTOR OF VITAL STATISTICS ? Weight bearing: full Assist: CGA/DIRECTOR OF VITAL STATISTICS? Distance:? 40', began complaining of right thigh discomfort and started to sit. Additional CGA assistance of one was given to get patient back to room. ? ASSESSMENT: Pleasant, but very confused. She was able to don her pants and shoes with assistance. PLAN: Continue with her functional mobility tolerances as per PT POC. TREATMENT CODE/TIME: 20 min ([id number])
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
[2021-12-16] MEDS: QUEtiapine 100 MG TAB 300 MG PO (22:27)
[2021-12-16] MEDS: LORazepam 0.5 MG TAB PO (22:28)
[2021-12-16] MEDS: Mirtazapine 15 MG TAB PO (22:28)
[2021-12-17 08:20] VITALS: BP 134/82; PULSE 77; RESP 16; TEMP 37.5; O2SAT 97
[2021-12-17] MEDS: LORazepam 0.5 MG TAB PO (09:18)
--- NOTE | 2021-12-17 10:20 | NS.NUTBLAN_ITS ---
Date of service: 12/17/21 Time of Service: 10:20 Nutritional Consult ASSESSMENT: Richa is familiar to comic writer from previous admission in September 2021. Dx with advanced dementia and cannot return home as she was living by herself. Richa was discharged to [facility] and has returned to [facility] in swing bed capacity awaiting SNF placement. Weight up 5 lbs since discharge 8 weeks ago, however, has been refusing meals or eating very small amounts since admission on 11/30/21. Expect appetite to increase once she is more familiar with her new surroundings. Will continue to offer meals and supplements. At risk for malnutrition and skin breakdown. NUTRITIONAL DIAGNOSIS: Inadequate macronutrient intake for > 5 days due to dementia INTERVENTION: Will offer wide range of foods and supplements such as ensure, magic cup, milk shakes MONITORING AND EVALUATION: weigh weekly, po intake monitored daily Time Spent in Nutritional Counseling and Treatment: 0
[2021-12-17 13:03] VITALS: TEMP 38
[2021-12-17] MEDS: QUEtiapine 100 MG TAB 200 MG PO (13:03)
[2021-12-17] MEDS: Acetaminophen 325 MG TAB 650 MG PO ×2 (13:03→21:07)
--- NOTE | 2021-12-17 17:23 | PDOC.CMPRO ---
- If Service Date Differs Date of service: 12/17/21 Time of Service: 17:23 Care Management Progress Note S/O:Renita is still awaiting placement in a short or intermediate school teacher care facility. Referrals were sent from [facility], [facility], to [facility] (first choice of DPOA), [facility], [facility], [facility], [facility], [facility] and [facility]. She was declined at [facility]. [facility] is reviewing her, and no response was received from [facility] or [facility]. [facility] was full at the time of referral. CM spoke with [facility] today who requested updated clinical information,which was sent by CM. Miryam Dozier, Admission Coordinator, made a tentative bed offer for the week of December 30. There is an issue with [facility]'s insurance but that will be resolved on January, per Miryam.. [facility]'s DPOA Sincere Ferreira has indicated that if needed, Renita can afford to pay privately for a couple of months, so that should not be a barrier. Renita has an ingrown toenail that is extremely painful and is inhibiting her ability to ambulate. Over the weekend, per nursing, she has been crying and appeared to be sad. She verbalized being in pain but would not accept pain medication. A podiatry consult has vasile ordered. A: Renita is an 81 year old woman admitted into -2 on 12/11/21 while awaiting placement. P: Renita has received a tentative bed offer from [facility] for the week of December 30. Additional clinical information was faxed to them today. If the bed offer is rescinded, CM will contact the other facilities for an update. CM will continue to support Dot and assess for ongoing discharge needs.
[2021-12-17 18:30] LABS: Abs Immature Grans 0.01 10^3/uL (0.0-0.06); Absolute Basophil Count 0.05 10^3/uL (0.0-0.2); Absolute Eosinophil Count 0.23 10^3/uL (0.0-0.7); Absolute Lymphocyte Count 0.97 10^3/uL (1.2-3.4); Absolute Monocyte Count 0.57 10^3/uL (0.1-0.8); Absolute Neutrophil Count 4.93 10^3/uL (1.2-6.7); Basophils % 0.7; Eosinophils % 3.4; HCT 34.6 % (36.0-46.0); HGB 11.4 g/dL (11.2-15.7); Immature Grans % 0.1; Lymphocytes % 14.3; MCH 29.1 pg (27.0-33.0); MCHC 32.9 % (32.0-36.0); MCV 88 fL (80-95); MPV 8.6 fL (8.0-11.0); Monocytes % 8.4; Neutrophils % 73.1; Platelet Count 405 10^3/uL (130-400); RBC 3.92 10^6/uL (3.93-5.22); RDW 15.9 % (11.7-14.6); RDW-SD 51.8 fL; WBC 6.76 10^3/uL (4.4-10.8)
[2021-12-17 18:41] LABS: Source Nasal/Nares
[2021-12-17 19:15] LABS: COVID-19 PCR Negative (Negative)
[2021-12-17] MEDS: QUEtiapine 100 MG TAB 300 MG PO (21:06)
[2021-12-17] MEDS: Memantine 5 MG TAB 10 MG PO (21:07)
[2021-12-17] MEDS: Mirtazapine 15 MG TAB PO (21:08)
--- NOTE | 2021-12-18 | DI.RAD_ITS ---
Exam(s) XR PORTABLE CHEST AP EXAM: XR PORTABLE CHEST AP CLINICAL HISTORY: fever TECHNIQUE: 2D digital imaging was performed of the chest. One image was obtained. An AP view was ob tained. COMPARISON: CR XR PORTABLE CHEST AP from 09/24/2021 FINDINGS: MEDIASTINUM: Normal. HEART: Normal. PULMONARY VASCULATURE: Normal. Atherosclerosis of the thoracic aorta. LUNGS: There is a new opacity in the right mid lung. The lungs are otherwise clear. PLEURAL SPACE: No pleural effusion or pneumothorax. BONE:Within normal limits for the patient's age. OTHER FINDINGS:Normal. IMPRESSION: New right mid lung opacity. This may represent pneumonia or atelectasis. Please correlate clinicall y. DATA REPOSITORY: RADIATION DOSE DELIVERED:
[2021-12-18 11:20] VITALS: BP 124/71; PULSE 86; RESP 16; TEMP 36.3; O2SAT 92
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
[2021-12-18] MEDS: Polyethylene Glycol 3350 17 GM PACKET PO (11:53)
[2021-12-18 12:30] LABS: Procalcitonin < 0.1 ng/mL
[2021-12-18] MEDS: QUEtiapine 100 MG TAB 300 MG PO (21:16)
[2021-12-18] MEDS: Mirtazapine 15 MG TAB PO (21:16)
[2021-12-18] MEDS: Memantine 5 MG TAB 10 MG PO (21:16)
[2021-12-18] MEDS: Acetaminophen 325 MG TAB 650 MG PO (21:16)
[2021-12-19] MEDS: Polyethylene Glycol 3350 17 GM PACKET PO (10:23)
[2021-12-19] MEDS: QUEtiapine 100 MG TAB 200 MG PO (10:23)
[2021-12-19] MEDS: Docusate Sodium 100 MG/10 ML CUP PO ×2 (10:23→20:09)
[2021-12-19] MEDS: Memantine 5 MG TAB 10 MG PO (10:23)
[2021-12-19] MEDS: Acetaminophen 325 MG TAB 650 MG PO ×2 (10:23→20:09)
[2021-12-19] MEDS: Omeprazole 20 MG CAPCR PO (10:23)
--- NOTE | 2021-12-19 11:50 | PCNE_ITS ---
Date of service: 12/19/21 Time of Service: 11:50 History of Present Illness Narrative: Renita is an 81 yo female with advanced dementia. She is confused, agitated and refusing care. Staff is concerned that she is in pain. She sleeps most of the time, if she is not sleeping, she is crying out. She is not oriented. There is question that she may have a UTI but she will not allow staff to obtain UA via straight cath. Hospitalist was going to treat empirically. She has been seen by Palliative in the past. Palliative has been consulted to revisit goals of care with her health care agent. At the time of her visit, she was laying in bed, awake. She is oriented to person only but unable to state her . She was pleasant and attempted to answer questions but her speech was nonsensic al. She is not eating well. Her healthcare agent is Sincere Ferreira I spoke with Sincere over the phone. He is clear that Renita does not want aggressive care. He stated, I think she is on the decline, keep her comfortable. He does not think she needs to continue with PT/OT. He wants only comfort focused care. His daughter, Suzanna, is a hospice nurse. Suzanna is also Renita's guardian. I was able to meet with Suzanna. Suzanna agrees with comfort focused care. Suzanna preferred not to give Abx for possible UTI. Discussed stopping all medication except for comfort medications. 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 She has been seen by palliative in the past. Palliative was consulted today to discuss goals of care including possible transition to comfort focused care. She is sleeping more. She is not eating very much. She is frequently agitated when she is awake. She is refusing care and spitting out medications. Discussed with her health care agent, Sincere and her guardian, Suzanna who both agree to transition to comfort focused care. Discussed with hospitalist. Comfort care orders placed. Review of Systems Narrative: Unable to participate d/t advanced dementia. 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 (Acute) Abdominal pain (Acute) COVID-19 (Acute) Glaucoma (Chronic) Dementia (Chronic) Closed C6 fracture (Acute) Dementia (Chronic) Unable to care for self (Acute) Endometrial hyperplasia with atypia (Acute) Cannot rule out endometrial cancer Thickened endometrium (Acute) Postmenopausal bleeding (Acute) Medical History Palliative care patient Social History Smoking/Tobacco Use Status: Never Smoking risk assessment performed?: Yes Alcohol Intake: never Substance use type: does not use Do you feel safe at home: Yes Do you feel safe in your relationship?: Yes Exam Narrative Exam Narrative: General: pleasant, elderly female, laying in bed, awake and alert. She has a doll laying next to her in bed. She appears thin. She is oriented to self, but unable to state her . HEENT: normocephalic, atraumatic, EOMI, MMM. Neck: supple. Cardiovascular: heart sounds regular, nontachycardic. Respiratory: respirations appear even and unlabored, lung sounds are clear on limited anterior and lateral exam. GI: +BS, abd soft, nondistended, does not appear to be tender on palpation. Extremities: moves all 4 extremities freely, no edema. Results Last Vital Signs Temp 36.3 C L 12/18/21 11:20 Pulse 86 12/18/21 11:20 Resp 16 12/18/21 11:20 BP 124/71 12/18/21 11:20 Pulse Ox 92 12/18/21 11:20 Labs Result diagrams: 12/17/21 18:15 Labs: Laboratory Results - last 24 hr 12/18/21 11:35 Procalcitonin < 0.1
[2021-12-19] MEDS: Scopolamine 1 MG/3 DAYS PATCH TD (16:25)
--- NOTE | 2021-12-19 18:09 | PGE_ITS ---
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: Status: Acute Assessment and plan: Chronic delirium continue scheduled mirtazapine, seroquel and prn olanzapine and lorazepam for behaviors - although she has been refusing medications (3) Unable to care for self: Status: Acute Assessment and plan: Dependent for all care (4) Agitation due to dementia: Status: Acute Assessment and plan: As above (5) Discharge planning issues: Status: Acute Assessment and plan: will need pen[facility]entiary care placement d/t severe advanced dementia - this may change with new comfort measures only appreciate PT to evaluate for any rehab needs case management following for discharge planning. discussed with Dr Burch Subjective Subjective Patient reports: no new complaints Interval history since last seen: Richa Griffin) is very confused, anxious, lashing out, yelling and crying. She is not eating. She is not drinking much fluid. Discussion with Palliative Care, guardian and DPOA decision was made ot put her on comfort measures. See Palliative Care note Discussed with Dr Burch Exam Const General: cooperative, no acute distress and frail appearing Nutritional Appearance: thin and underweight (refusing food) Orientation: alert, awake, not oriented x3 and confused Limitations: altered mental status HENMT Head: normal to inspection, normocephalic and atraumatic Eyes General: appearance normal, both eyes and all related structures Neck Neck: normal visual inspection Chest Chest: normal inspection of the chest Resp Effort & Inspection: normal respiratory effort Auscultation: clear to auscultation bilaterally Cardio Rate: regular rate Rhythm: regular rhythm GI Inspection: normal to inspection Palpation: soft Neuro General: patient alert, patient awake and patient confused (at baseline) Motor: muscle tone normal throughout and strength 5/5 throughout Extrem General: normal to inspection and no pedal edema Psych Appearance: grossly normal Objective Last Vital Signs Temp 36.3 C L 12/18/21 11:20 Pulse 86 12/18/21 11:20 Resp 16 12/18/21 11:20 BP 124/71 12/18/21 11:20 Pulse Ox 92 12/18/21 11:20 Reviewed Pertinent PMH: Yes
[2021-12-19] MEDS: QUEtiapine 100 MG TAB 300 MG PO (20:09)
[2021-12-19] MEDS: Mirtazapine 15 MG TAB PO (20:09)
--- NOTE | 2021-12-20 10:47 | PGE_ITS ---
Date of Service Date of service: 12/20/21 Time of Service: 10:47 Assessment and Plan Assessment and plan (1) Dementia: Status: Chronic Assessment and plan: will discontinue home medications per discussion with Palliative care; continue delirium meds safety precautions Spitting out her pills today, agitated, stating her entire body hurts, aggressive to staff. Continues to not eat or drink much at all. After discussion with Palliative Care ASSEMBLER INSTALLER GENERAL, Zyprexa, Lorazepam and Dialudid IM given - improved and sleeping; reg resp rate, VSS. Fentanyl patch placed for moderate pain control. 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: Status: Acute Assessment and plan: Chronic delirium continue scheduled mirtazapine, seroquel and prn olanzapine and lorazepam for behaviors - although she has been refusing medications As above (3) Unable to care for self: Status: Acute Assessment and plan: Dependent for all care (4) Agitation due to dementia: Status: Acute Assessment and plan: As above (5) Discharge planning issues: Status: Acute Assessment and plan: will need [place] [facility] d/t severe advanced dementia - this may change with new comfort measures only appreciate PT to evaluate for any rehab needs case management following for discharge planning. discussed with Dr Burch Subjective Subjective Interval history since last seen: Yelling, spitting out her pills, unable to be calmed Exam Const General: cooperative, no acute distress and frail appearing Nutritional Appearance: thin and underweight (refusing food) Orientation: alert, awake, not oriented x3 and confused Limitations: altered mental status Other: very agitated and aggressive. [facility] Head: normal to inspection, normocephalic and atraumatic Eyes General: appearance normal, both eyes and all related structures Neck Neck: normal visual inspection Chest Chest: normal inspection of the chest Resp Effort & Inspection: normal respiratory effort Auscultation: clear to auscultation bilaterally Cardio Rate: regular rate Rhythm: regular rhythm GI Inspection: normal to inspection Palpation: soft Neuro General: patient alert, patient awake and patient confused (at baseline) Extrem General: normal to inspection and no pedal edema Psych Appearance: grossly normal Objective Last Vital Signs Temp 36.3 C L 12/18/21 11:20 Pulse 86 12/18/21 11:20 Resp 16 12/18/21 11:20 BP 124/71 12/18/21 11:20 Pulse Ox 92 12/18/21 11:20
[2021-12-20] MEDS: Water,Injection,Sterile 10 ML VIAL (11:16)
[2021-12-20] MEDS: OLANZapine 10 MG VIAL 5 MG IM (11:16)
[2021-12-20] MEDS: LORazepam 20 MG/10 ML VIAL IM (11:17)
[2021-12-20] MEDS: HYDROmorphone 2 MG/ML SYR 1 MG IM (11:17)
--- NOTE | 2021-12-20 11:22 | NUR.NOTE ---
Richa keeps crying and saying I cant help it, help me, it hurts all over she has been saying this over and over for the last 3 hours the nurse has been notified. Nursing Note:
[2021-12-20] MEDS: fentaNYL 12 MCG PATCH TD (11:25)
--- NOTE | 2021-12-20 21:10 | NUR.NOTE ---
Nursing Note: Pt resting peacefully and comfortably. No obvious signs of pain or discomfort to note. Patient appears calm and relaxed. No facial grimacing tension to extremities noted. Will monitor patients comfort closely.
[2021-12-21] MEDS: HYDROmorphone 2 MG/ML SYR 1 MG IM ×4 (06:26→21:36)
--- NOTE | 2021-12-21 06:35 | NUR.NOTE ---
Nursing Note: PO ativan spit out by patient. Wasted by second RN at [facility]
[2021-12-21] MEDS: LORazepam 20 MG/10 ML VIAL IM ×2 (17:32→21:36)
[2021-12-21] MEDS: Haloperidol 5 MG/ML VIAL 2 MG IM (18:17)
--- NOTE | 2021-12-21 18:44 | NUR.NOTE ---
Nursing Note: I have reviewed and approve the Charting of Apple Kramer LPN.
[2021-12-22] MEDS: HYDROmorphone 2 MG/ML SYR 1 MG IM (01:07)
[2021-12-22] MEDS: LORazepam 20 MG/10 ML VIAL IM (01:08)
[2021-12-22] MEDS: Fentanyl Patch Removal 1 EACH TP (09:27)
[2021-12-22] MEDS: Scopolamine 1 MG/3 DAYS PATCH TD (16:44)
--- NOTE | 2021-12-23 07:51 | PCPN_ITS ---
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 She looks like she is at peace. She does not appear to have any pain or anxiety. I did speak to nursing about her upper airway congestion. It either may be time for scopolamine patch or she may need more. I would recommend hyoscyamine if she appears to be uncomfortable although she did not when I was seeing her. Also spoke with hospitalist Dr. Garcia. I think that she will probably pass within hours, or days at most Subjective Subjective Interval history since last seen: Richa is an 81-year-old woman with advanced dementia. She has been feeling considerably worse over the last several days to weeks. Her DPOA feels strongly that she would want comfort measures only. Richa is currently on a morphine drip and it has not been changed for a pproximately 24 hours. Staff feels that she is very comfortable, anxiety is well controlled, and that it is a matter of time until she passes. Exam Narrative Exam Narrative: I came in to see Richa. She did not wake up despite calling her name and skin rustling. She was having apneic breathing spells. There was upper airway gurgling. She has a scopolamine patch in place. She does not have a catheter but does have depends on. She does not have any swelling. She looked comfortable Objective Last Vital Signs Temp 97.3 F L 12/18/21 11:20 Pulse 86 12/18/21 11:20 Resp 16 12/18/21 11:20 BP 124/71 12/18/21 11:20 Pulse Ox 92 12/18/21 11:20
[2021-12-23] MEDS: Hyoscyamine 0.125 MG SL/ORAL/CHEW SL (09:53)
--- NOTE | 2021-12-23 11:05 | NUR.NOTE ---
Called and gave update to Suzanna regarding patients condition. Nursing Note:
--- NOTE | 2021-12-23 12:14 | CMPROGNOTE_ITS ---
- If Service Date Differs Date of service: 12/23/21 Time of Service: 12:14 Care Management Progress Note S/O:Renita was placed on comfort measure last week and a morphine infusion was initiated yesterday. Renita appears comfortable and is no longer exhibiting symptoms of anxiety or pain. She is no longer responding to verbal stimuli. Suzanna Lopes, her temporary guardian and good friend, came to see Renita today. A: Richa was readmitted to [facility] from [facility] on 12/11/21 awaiting placement. P:The plan was for Renita to go to a SNF for document examiner care, however her LTM application has not been approved yet. [facility] has expressed interest but would not be able to take her until next week. In the meantime, Rneita has declined to the point where she was placed on comfort care. She is currently on a CAD pump receiving IV morphine. It is likely she will pass at [facility].
[2021-12-23] MEDS: HYDROmorphone 2 MG/ML SYR 1 MG IM (15:45)
[2021-12-23] MEDS: LORazepam 20 MG/10 ML VIAL IM (15:46)
--- NOTE | 2021-12-23 17:36 | W.PM.DDS ---
Date of service: 12/23/21 Time of Service: 17:36 Discharge Sum: Prov Provider Consults: 12/13/21 17:15 Podiatry Consult [CONS] Routine Consultation Status:: Follow-up needed Clarification:: Manage/follow per spec. Reason for consult:: Right great toe onychocryptosis; curved down front of toe 12/19/21 11:11 Palliative Care Consult [CONS] Routine Consultation Status:: Follow-up needed Clarification:: Manage/follow per spec. Reason for consult:: Dementia, resistance to care including workup. 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
--- NOTE | 2021-12-24 10:51 | W.PM.DDS ---
Date of service: 12/23/21 Time of Service: 17:32 Discharge Sum: Prov Provider Consults: 12/13/21 17:15 Podiatry Consult [CONS] Routine Consultation Status:: Follow-up needed Clarification:: Manage/follow per spec. Reason for consult:: Right great toe onychocryptosis; curved down front of toe 12/19/21 11:11 Palliative Care Consult [CONS] Routine Consultation Status:: Follow-up needed Clarification:: Manage/follow per spec. Reason for consult:: Dementia, resistance to care including workup. 

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
== END 2021-12-23 17:30 | disposition expired | DRG 57 ==
PROVIDERS: Internal Medicine; Nurse Practitioner Acute Care; Admitting Provider Internal Medicine; PCP Family Medicine; Visit Provider Internal Medicine
DX: G30.1 Alzheimer's disease with late onset (principal); F02.81 Dementia in other diseases classified elsewhere, unspecified severity, with behavioral disturbance; F05 Delirium due to known physiological condition; N85.02 Endometrial intraepithelial neoplasia [EIN]; Z51.5 Encounter for palliative care; Z86.16 Personal history of COVID-19; R10.9 Unspecified abdominal pain; H40.9 Unspecified glaucoma; N95.0 Postmenopausal bleeding; S12.590D Other displaced fracture of sixth cervical vertebra, subsequent encounter for fracture with routine healing; V89.2XXD Person injured in unspecified motor-vehicle accident, traffic, subsequent encounter; Z91.83 Wandering in diseases classified elsewhere; R45.1 Restlessness and agitation
CPT/HCPCS: 36415; 84145; 87081; 87635; 97110; 97163; 97167; 97530; 97535; 99305; 99315; 71045; 85025; 99308; J1170; J1630; J3490